=== PATIENT | female | born 1960 | race African-American/Black ===

== ENCOUNTER 2016-10-01 01:06 | Emergency (ER) | payer MEDICARE, OTHER ==
[~2016-10-01] VITALS: Ht 160 cm; Wt 115.0 kg
[~2016-10-01 01:06] MED LIST: 1-ME1LIQ PO; ACET325S8 PO; CALC667C PO; FURO1TAB93 PO; GABA100C4 PO; HYDR10TA23 PO; LABE300T PO; LANTUSP SQ; LIPI80TA16 PO; MACR100C PO; NOVOLOGP2 SQ; PRIL20CA PO; SKIN1CRE2 TOP; SODI650T PO; VITAMIN D PO; ZOFR4TAB3 SL; [UNRECOGNIZED DRUG - CODE] SQ; [UNRECOGNIZED DRUG - OTHER] IR
[2016-10-01 01:18] VITALS: BP 177/83; PULSE 100; RESP 18; TEMP 98.2; O2SAT 96
[2016-10-01 01:27] VITALS: RESP 16; O2SAT 97
[2016-10-01] MEDS ORDERED: SODIUM CHLORIDE 0.9% FLUSH 5 ML FLUSH IVF PRN (01:30)
[2016-10-01] MEDS ORDERED: LANTUS2P (01:44)
[2016-10-01] MEDS ORDERED: HYDR50TA15 PO (01:44)
[2016-10-01] MEDS ORDERED: [UNRECOGNIZED DRUG - CODE] SQ (01:44)
[2016-10-01] MEDS ORDERED: NOVOLOGP2 SQ (01:44)
[2016-10-01] MEDS ORDERED: LABE300T PO (01:44)
[2016-10-01] MEDS ORDERED: LIPI80TA PO (01:44)
[2016-10-01] MEDS ORDERED: TYLE325T PO (01:44)
[2016-10-01] MEDS ORDERED: OMEP20CA2 (01:44)
[2016-10-01] MEDS ORDERED: SODI650T PO (01:44)
[2016-10-01] MEDS ORDERED: GABA100C4 PO (01:44)
[2016-10-01] MEDS ORDERED: FURO1TAB60 PO (01:44)
--- NOTE | 2016-10-01 01:55 | RADRPT ---
EXAM DATE/TIME: 10/01/2016 01:42 [facility] COMPARISON: CHEST SINGLE AP, December 28, 2012, 13:37. INDICATIONS : Weakness post dialysis. MEDICAL HISTORY : Renal failure, chronic. SURGICAL HISTORY : None. ENCOUNTER: Initial ACUITY: 1 day PAIN SCORE: 0/10 LOCATION: Bilateral chest FINDINGS: The cardiac silhouette is enlarged in transverse diameter. The lungs are free of acute parenchymal op acity. No effusions are identified. Osseous structures are intact. CONCLUSION: Cardiomegaly. No acute cardiopulmonary disease. Sean Alcantara MD on October 01, 2016 at 1:53 Board Certified Radiologist. This report was verified electronically.
[2016-10-01 01:56] LABS: AUTOMATED NEUTROPHIL # 4.6 TH/MM3 (1.8-7.7); BASOPHIL % 0.7 % (0.0-2.0); EOSINOPHIL # 0.1 TH/MM3 (0-0.4); EOSINOPHIL % 1.8 % (0.0-4.0); HEMATOCRIT 32.2 % (35.0-46.0); LYMPH % 11.9 % (9.0-44.0); LYMPHOCYTE # 0.7 TH/MM3 (1.0-4.8); MEAN CELL VOLUME 78.2 FL (80.0-100.0); MEAN CORPUSCULAR HEMOGLOBIN 24.8 PG (27.0-34.0); MEAN CORPUSCULAR HGB CONC 31.7 % (32.0-36.0); MONO % 6.8 % (0.0-8.0); NEUT % 78.8 % (16.0-70.0); PLATELET COUNT 248 TH/MM3 (150-450); RED BLOOD COUNT 4.11 MIL/MM3 (4.00-5.30); RED CELL DISTRIBUTION WIDTH 15.7 % (11.6-17.2); WHITE BLOOD COUNT 5.9 TH/MM3 (4.0-11.0)
[2016-10-01 01:57] LABS: APTT (PATIENT) 27.9 SEC (24.3-30.1); PROTHROMBIN TIME - PATIENT 10.9 SEC (9.8-11.6)
[2016-10-01 02:00] LABS: HEMO FLAGS AUTO DIFF
[2016-10-01 02:05] LABS: BICARBONATE 29.4 MEQ/L (21.0-32.0); MAGNESIUM 1.7 MG/DL (1.5-2.5); POTASSIUM 3.7 MEQ/L (3.5-5.1)
[2016-10-01 03:01] LABS: OVALOCYTES 1+ (NORMAL); SCAN/DIFF AUTO DIFF CONFIRMED
--- NOTE | 2016-10-01 03:08 | PD ---
HPI Chief Complaint: Dizziness Time Seen by Provider: 01:21 Travel History International Travel<30 days: No Contact w/Intl Traveler<30days: No Traveled to known affect area: No History of Present Illness HPI Patient is a 56-year-old female presents to emergency department with a chief complaint of dizziness and lightheadedness. Patient states that she went to dialysis today and after finishing dialysis around 3:00 she began to feel some dizziness and weakness. This was generalized complaints she had no focal weakness. She initially tried to bear it at home but then called her physician who told her to come in the emergency department to be seen. Patient denies any headache nausea vomiting abdominal pain chest pain shortness of breath. States she did really her entire dialysis treatment and it took approximately 2 L off of her today. Denies any fevers. PFSH Past Medical History Anemia: Yes Asthma: No Heart Rhythm Problems: No Cancer: No Cardiovascular Problems: Yes (HTN, CHF) High Cholesterol: Yes Chest Pain: Yes (chest pain 2 months ago) Congestive Heart Failure: Yes COPD: No Diabetes: Yes Patient Takes Glucophage: No Dialysis: Yes (MON, WED, FRI) Diminished Hearing: No Endocrine: Yes GERD: Yes Genitourinary: Yes (ESRD) Hepatitis: No Hiatal Hernia: No Hypertension: Yes Immune Disorder: No Kidney Stones: No Medical other: Yes (ULCER X 2 ON LEFT LOWER LEG - ) Musculoskeletal: Yes (BROKEN RIGHT LEG ) Neurologic: No Psychiatric: No Reproductive: No Respiratory: Yes Renal Failure: Yes (ESRD) Sleep Apnea: Yes Ulcer: No Tetanus Vaccination: < 5 Years Influenza Vaccination: Yes Menopausal: Yes : 1 Miscarriage: 1 Past Surgical History Abdominal Surgery: No AICD: No Body Medical Devices: NONE Cardiac Surgery: No Ear Surgery: No Endocrine Surgery: No Eye Surgery: No Genitourinary Surgery: No Gynecologic Surgery: No Joint Replacement: No Oral Surgery: No Pacemaker: No Thoracic Surgery: No Other Surgery: Yes (RIGHT LEG DEBRIDMENT AND SKIN GRAFT, LEFT ARM FISTULA) Social History Alcohol Use: No Tobacco Use: No Substance Use: No Allergies-Medications (Allergen,Severity, Reaction): Coded Allergies: Ampicillin (Unverified Allergy, Severe, DIARRHEA/VOMITTING, 10/01/16) Bactrim (Verified Allergy, Severe, HIVES, 10/01/16) Reported Meds & Prescriptions Reported Meds & Active Scripts Active Reported Sodium Bicarbonate 650 Mg Tab 650 Mg PO BIDPC Omeprazole 20 Mg Cap DAILY Labetalol (Labetalol HCl) 300 Mg Tab 300 Mg PO TID Lantus Inj (Insulin Glargine) 100 Unit/Ml Inj 45 BID Novolog Inj (Insulin Aspart) 1,000 Unit/10 Ml Vial 0 SQ DIRECTED Sliding Scale as directed. Hydralazine (Hydralazine HCl) 50 Mg Tab 50 Mg PO BID Take with a meal Gabapentin 100 Mg Cap 100 Mg PO BID Lasix (Furosemide) 40 Mg Tab 40 Mg PO BID Epogen Inj (Epoetin Caleb) 20,000 Unit/Ml Inj 60,000 Units SQ DIRECTED Lipitor (Atorvastatin Calcium) 80 Mg Tab 80 Mg PO HS Tylenol (Acetaminophen) 325 Mg Tab 650 Mg PO Q6H PRN Review of Systems Except as stated in HPI: all other systems reviewed are Neg Physical Exam Narrative GENERAL: [Well-developed well-nourished no apparent distress SKIN: Warm and dry. HEAD: Atraumatic. Normocephalic. EYES: Pupils equal and round. No scleral icterus. No injection or drainage. ENT: No nasal bleeding or discharge. Mucous membranes pink and moist. NECK: Trachea midline. No JVD. CARDIOVASCULAR: Regular rate and rhythm. No murmur appreciated. 2+ bilateral equal pulses in all 4 extremities. Left forearm AV fistula with palpable thrill. RESPIRATORY: No accessory muscle use. Clear to auscultation. Breath sounds equal bilaterally. GASTROINTESTINAL: Abdomen soft, non-tender, nondistended. Hepatic and splenic margins not palpable. MUSCULOSKELETAL: No obvious deformities. No clubbing. No cyanosis. No edema. Previous BKA on the right. NEUROLOGICAL: Awake and alert. cranial nerves II through XII are grossly intact and nonfocal, 5 out of 5 strength in all 4 tremors. Normal speech, cerebellar testing negative. PSYCHIATRIC: Appropriate mood and affect; insight and judgment normal. Data Data Last Documented VS Vital Signs Date Time Temp Pulse Resp B/P Pulse Ox O2 Delivery O2 Flow Rate FiO2 10/01/16 03:34 98.4 68 18 141/56 97 10/01/16 01:27 Room Air Orders Electrocardiogram (10/01/16 01:23) Basic Metabolic Panel (Bmp) (10/01/16 01:23) Ckmb (Isoenzyme) Profile (10/01/16 01:23) Complete Blood Count With Diff (10/01/16:23) Magnesium (Mg) (10/01/16:23) Prothrombin Time / Inr (Pt) (10/01/16:) Act Partial Throm Time (Ptt) (10/01/16:) Troponin I (10/01/16:) Chest, Single Ap (10/01/16:23) Ecg Monitoring (10/01/16:) Bilateral Bp Monitoring (10/01/16) Iv Access Insert/Monitor (10/01/16:) Oximetry (10/01/16:) Oxygen Administration (10/01/16:) Sodium Chloride 0.9% Flush (Ns Flush) (10/01/16:30) Labs Laboratory Tests Test 10/01/16: White Blood Count 5.9 TH/MM3 Red Blood Count 4.11 MIL/MM3 Hemoglobin 10.2 GM/DL Hematocrit 32.2 % Mean Corpuscular Volume 78.2 FL Mean Corpuscular Hemoglobin 24.8 PG Mean Corpuscular Hemoglobin 31.7 % Concent Red Cell Distribution Width 15.7 % Platelet Count 248 TH/MM3 Mean Platelet Volume 7.9 FL Neutrophils (%) (Auto) 78.8 % Lymphocytes (%) (Auto) 11.9 % Monocytes (%) (Auto) 6.8 % Eosinophils (%) (Auto) 1.8 % Basophils (%) (Auto) 0.7 % Neutrophils # (Auto) 4.6 TH/MM3 Lymphocytes # (Auto) 0.7 TH/MM3 Monocytes # (Auto) 0.4 TH/MM3 Eosinophils # (Auto) 0.1 TH/MM3 Basophils # (Auto) 0.0 TH/MM3 CBC Comment AUTO DIFF Differential Comment AUTO DIFF CONFIRMED Ovalocytes 1+ Prothrombin Time 10.9 SEC Prothromb Time International 1.0 RATIO Ratio Activated Partial 27.9 SEC Thromboplast Time Sodium Level 139 MEQ/L Potassium Level 3.7 MEQ/L Chloride Level 103 MEQ/L Carbon Dioxide Level 29.4 MEQ/L Anion Gap 7 MEQ/L Blood Urea Nitrogen 20 MG/DL Creatinine 3.24 MG/DL Estimat Glomerular Filtration 18 ML/MIN Rate Random Glucose 272 MG/DL Calcium Level 8.6 MG/DL Magnesium Level 1.7 MG/DL Total Creatine Kinase 91 U/L Troponin I 0.02 NG/ML MDM Medical Decision Making Medical Screen Exam Complete: Yes Emergency Medical Condition: Yes Differential Diagnosis Electro-lead abnormality, dehydration, CVA unlikely, vertigo. Narrative Course Patient roomed in the emergency department, EKG troponin electrolytes all within normal limits. She was given normal saline and felt better after this treatment. Discussed with her that her initial workup is negative and she stable for discharge at this time. She is agreeable to go home. Diagnosis Primary Impression: Dizziness Additional Instructions: Call your synthetic resin operator tomorrow. Disposition: 01 DISCHARGE HOME Condition: Stable Rock Bravo MD Oct 01, 2016 03:08
[2016-10-01 03:34] VITALS: BP 141/56; TEMP 98.4
--- NOTE | 2016-10-01 14:21 | EKG ---
Date Performed: 10/01/2016 Time Performed: 02:16:51 PTAGE: 56 years EKG: Sinus rhythm POSSIBLE LEFT ATRIAL ENLARGEMENT SEPTAL MYOCARDIAL INFARCTION ABNORMAL ECG Compared to prior tracing no significant change PREVIOUS TRACING : 01/08/2013 13.23 DOCTOR: Mario Ambrocio Interpretating Date/Time 10/01/2016 14:17:12
== END 2016-10-01 03:35 | disposition home or self-care (01) ==
LOC: NEPC 01:06
DX: R42 Dizziness and giddiness (principal); Z99.2 Dependence on renal dialysis; I12.0 Hypertensive chronic kidney disease with stage 5 chronic kidney disease or end stage renal disease; E11.9 Type 2 diabetes mellitus without complications; K21.9 Gastro-esophageal reflux disease without esophagitis; N18.6 End stage renal disease; G47.30 Sleep apnea, unspecified; Z79.4 Long term (current) use of insulin; R94.31 Abnormal electrocardiogram [ECG] [EKG]
CPT/HCPCS: 71010; 80048; 82550; 83735; 84484; 85025; 85610; 85730; 93005

== ENCOUNTER 2016-10-03 14:54 | Inpatient (IN) | payer MEDICARE, OTHER ==
[~2016-10-03] VITALS: Ht 160 cm; Wt 100.0 kg
[~2016-10-03 14:54] MED LIST changes: -1-ME1LIQ PO; -ACET325S8 PO; -CALC667C PO; +FURO1TAB60 PO; -FURO1TAB93 PO; -HYDR10TA23 PO; +HYDR50TA15 PO; +LANTUS2P; -LANTUSP SQ; +LIPI80TA PO; -LIPI80TA16 PO; -MACR100C PO; +OMEP20CA2; -PRIL20CA PO; -SKIN1CRE2 TOP; +TYLE325T PO; -VITAMIN D PO; -ZOFR4TAB3 SL; +[UNRECOGNIZED DRUG - CODE] SQ; -[UNRECOGNIZED DRUG - CODE] SQ; -[UNRECOGNIZED DRUG - OTHER] IR
[2016-10-03 15:10] VITALS: BP 171/70; PULSE 84; RESP 18; TEMP 97.8; O2SAT 100
--- NOTE | 2016-10-03 15:37 | PD ---
HPI Chief Complaint: Dizziness Time Seen by Provider: 15:03 Travel History International Travel<30 days: No Contact w/Intl Traveler<30days: No Traveled to known affect area: No History of Present Illness HPI This is a 56-year-old female who presents to the emergency department with dizziness. She reports that ever since she had dialysis on Monday she's been feeling dizzy, like the room is spinning and like she is seeing white spots and feels like she is going to pass out. Symptoms have been constant throughout the weekend and she is having difficulty getting around the house she feels unsteady on her feet. She denies a headache, nausea or vomiting. She denies any chest pain or trouble breathing. She has never had symptoms like this before. She does still make urine. PFSH Past Medical History Anemia: Yes Asthma: No Heart Rhythm Problems: No Cancer: No Cardiovascular Problems: Yes (HTN, CHF) High Cholesterol: Yes Chest Pain: Yes (chest pain 2 months ago) Congestive Heart Failure: Yes COPD: No Diabetes: Yes Patient Takes Glucophage: No Dialysis: Yes (MON, MON, MON) Diminished Hearing: No Endocrine: Yes GERD: Yes Genitourinary: Yes (ESRD) Hepatitis: No Hiatal Hernia: No Hypertension: Yes Immune Disorder: No Kidney Stones: No Medical other: Yes (ULCER X 2 ON LEFT LOWER LEG - ) Musculoskeletal: Yes (BROKEN RIGHT LEG ) Neurologic: No Psychiatric: No Reproductive: No Respiratory: Yes Renal Failure: Yes (ESRD) Sleep Apnea: Yes Ulcer: No Menopausal: Yes : 1 Miscarriage: 1 Past Surgical History Abdominal Surgery: No AICD: No Body Medical Devices: NONE Cardiac Surgery: No Ear Surgery: No Endocrine Surgery: No Eye Surgery: No Genitourinary Surgery: No Gynecologic Surgery: No Joint Replacement: No Neurologic Surgery: No Oral Surgery: No Pacemaker: No Thoracic Surgery: No Other Surgery: Yes (RIGHT LEG DEBRIDMENT AND SKIN GRAFT, LEFT ARM FISTULA) Social History Alcohol Use: No Tobacco Use: No Substance Use: No Allergies-Medications (Allergen,Severity, Reaction): Coded Allergies: Ampicillin (Unverified Allergy, Severe, DIARRHEA/VOMITTING, 10/01/16) Bactrim (Verified Allergy, Severe, HIVES, 10/01/16) Reported Meds & Prescriptions Reported Meds & Active Scripts Active Reported Proventil Hfa 6.7 GM Inh (Albuterol Sulfate) 90 Mcg/Act Aer 1 Puff INH Q4H PRN Sodium Bicarbonate 650 Mg Tab 650 Mg PO BIDPC Omeprazole 20 Mg Cap DAILY Labetalol (Labetalol HCl) 300 Mg Tab 300 Mg PO TID Lantus Inj (Insulin Glargine) 100 Unit/Ml Inj 45 BID Novolog Inj (Insulin Aspart) 1,000 Unit/10 Ml Vial 0 SQ DIRECTED Sliding Scale as directed. Hydralazine (Hydralazine HCl) 50 Mg Tab 50 Mg PO BID Take with a meal Gabapentin 100 Mg Cap 100 Mg PO BID Lasix (Furosemide) 40 Mg Tab 40 Mg PO BID Epogen Inj (Epoetin Caleb) 20,000 Unit/Ml Inj 60,000 Units SQ DIRECTED Lipitor (Atorvastatin Calcium) 80 Mg Tab 80 Mg PO HS Tylenol (Acetaminophen) 325 Mg Tab 650 Mg PO Q6H PRN Review of Systems Except as stated in HPI: all other systems reviewed are Neg Physical Exam Narrative GENERAL:Well appearing, no acute distress SKIN: Dry with skin tenting. HEAD: Atraumatic. Normocephalic. EYES: Pupils equal and round. No injection or drainage. ENT: Moist mucous membranes NECK: Trachea midline. CARDIOVASCULAR: Regular rate and rhythm. No murmur appreciated. RESPIRATORY: Clear to auscultation. Breath sounds equal bilaterally. GASTROINTESTINAL: Abdomen soft, non-tender, nondistended. MUSCULOSKELETAL: No obvious deformities. NEUROLOGICAL: Awake and alert. No obvious cranial nerve deficits. Some expressive aphasia, uncertain if acute or chronic. No upper or lower extremity drift. Bilateral upper extremity ataxia. PSYCHIATRIC: Appropriate mood and affect; insight and judgment normal. Data Data Last Documented VS Vital Signs Date Time Temp Pulse Resp B/P Pulse Ox O2 Delivery O2 Flow Rate FiO2 10/03/16 18:00 77 18 141/99 100 Room Air 10/03/16 15:10 97.8 Orders Complete Blood Count With Diff (10/03/16 15:25) Basic Metabolic Panel (Bmp) (10/03/16 15:25) Troponin I (10/03/16 15:25) Mri Brain W/O Contrast (10/03/16 ) Electrocardiogram (10/03/16 ) ^ Insert Iv (10/03/16 15:25) Urinalysis - C+S If Indicated (10/03/16 15:26) Cath For Specimen (10/03/16 15:26) Admit Order (Ed Use Only) (10/03/16 19:04) Labs Laboratory Tests Test 10/03/16 10/03/16 10/03/16 15:36 15:40 17:00 Urine Color YELLOW Urine Turbidity HAZY Urine pH 5.5 Urine Specific [place] 1.016 Urine Protein 100 mg/dL Urine Glucose (UA) NEG mg/dL Urine Ketones NEG mg/dL Urine Occult Blood NEG Urine Nitrite NEG Urine Bilirubin NEG Urine Urobilinogen LESS THAN 2.0 MG/DL Urine Leukocyte Esterase NEG Urine RBC LESS THAN 1 /hpf Urine WBC 3 /hpf Urine Squamous Epithelial <1 /hpf Cells Urine Amorphous Sediment RARE Urine Bacteria OCC /hpf Urine Hyaline Casts 3 /lpf Microscopic Urinalysis Comment CATH-CULT NOT IND White Blood Count 6.6 TH/MM3 Red Blood Count 3.90 MIL/MM3 Hemoglobin 9.8 GM/DL Hematocrit 30.8 % Mean Corpuscular Volume 79.0 FL Mean Corpuscular Hemoglobin 25.3 PG Mean Corpuscular Hemoglobin 32.0 % Concent Red Cell Distribution Width 15.7 % Platelet Count 418 TH/MM3 Mean Platelet Volume 9.4 FL Neutrophils (%) (Auto) 65.3 % Lymphocytes (%) (Auto) 22.8 % Monocytes (%) (Auto) 6.9 % Eosinophils (%) (Auto) 4.1 % Basophils (%) (Auto) 0.9 % Neutrophils # (Auto) 4.3 TH/MM3 Lymphocytes # (Auto) 1.5 TH/MM3 Monocytes # (Auto) 0.5 TH/MM3 Eosinophils # (Auto) 0.3 TH/MM3 Basophils # (Auto) 0.1 TH/MM3 CBC Comment DIFF FINAL Differential Comment Sodium Level 139 MEQ/L Potassium Level 3.8 MEQ/L Chloride Level 102 MEQ/L Carbon Dioxide Level 25.6 MEQ/L Anion Gap 11 MEQ/L Blood Urea Nitrogen 42 MG/DL Creatinine 5.77 MG/DL Estimat Glomerular Filtration 9 ML/MIN Rate Random Glucose 115 MG/DL Calcium Level 8.8 MG/DL Troponin I 0.13 NG/ML 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 Patient was placed on a monitor and an IV was established. She was found to be somewhat ataxic with some dysarthria. MRI was obtained which demonstrates significant vertebral basilar disease with lacunar infarcts in the brainstem, which I suspect are related to her symptoms. I spoke to Dr. Driscoll who recommended the patient received 325 of aspirin and neurology will consult on her tomorrow. Physician Communication Physician Communication Discussed with Dr. Villegas and Dr. Driscoll Diagnosis Primary Impression: Stroke Qualified Code: I63.9 - Cerebrovascular accident (CVA), unspecified mechanism Admitting Information Admitting Physician Requests: Admit Harriet Basurto MD Oct 03, 2016 15:37
[2016-10-03 15:58] LABS: BACTERIA, URINE OCC /hpf; BLOOD, URINE NEG (NEG); GLUCOSE,URINE NEG (NEG); HYALINE CAST, URINE 3 /lpf (RARE); KETONE, URINE NEG (NEG); NITRITE,URINE NEG (NEG); PH, URINE 5.5 (5.0-8.5); SQUAMOUS EPITHELIAL CELL URINE <1 /hpf (0-5); URINE COLOR YELLOW (YELLW/STRAW)
[2016-10-03 15:59] LABS: COMMENT (UR) CATH-CULT NOT IND; CULTURE IF INDICATED CATH CULTURE NOT IND
[2016-10-03 16:06] LABS: AUTOMATED NEUTROPHIL # 4.3 TH/MM3 (1.8-7.7); BASOPHIL # 0.1 TH/MM3 (0-0.2); BASOPHIL % 0.9 % (0.0-2.0); EOSINOPHIL # 0.3 TH/MM3 (0-0.4); EOSINOPHIL % 4.1 % (0.0-4.0); HEMATOCRIT 30.8 % (35.0-46.0); HEMO FLAGS DIFF FINAL; LYMPH % 22.8 % (9.0-44.0); LYMPHOCYTE # 1.5 TH/MM3 (1.0-4.8); MEAN CORPUSCULAR HEMOGLOBIN 25.3 PG (27.0-34.0); MONO % 6.9 % (0.0-8.0); NEUT % 65.3 % (16.0-70.0); PLATELET COUNT 418 TH/MM3 (150-450); RED CELL DISTRIBUTION WIDTH 15.7 % (11.6-17.2); WHITE BLOOD COUNT 6.6 TH/MM3 (4.0-11.0)
[2016-10-03 17:56] LABS: BICARBONATE 25.6 MEQ/L (21.0-32.0); POTASSIUM 3.8 MEQ/L (3.5-5.1)
[2016-10-03 18:00] VITALS: BP 141/99; PULSE 77; RESP 18; O2SAT 100
--- NOTE | 2016-10-03 18:07 | RADRPT ---
EXAM DATE/TIME: 10/03/2016 17:32 [facility] COMPARISON: No previous studies available for comparison. INDICATIONS : Dizziness. MEDICAL HISTORY : Renal insufficiency. Diabetes mellitus type 2. Hypertension. SURGICAL HISTORY : Left BKA ENCOUNTER: Initial ACUITY: 3 day PAIN SCORE: 1/10 LOCATION: Bilateral cranial TECHNIQUE: Multiplanar, multisequence MRI of the brain was performed without contrast. FINDINGS: There is very minimal restricted diffusion in the brainstem at the level of the cerebra l peduncles. There is no restricted diffusion in the supratentorial brain. Marked periventricular white matter changes are evident extending into the brainstem. There are lacun ar infarcts in the brainstem. The fourth ventricle is midline. Supratentorial ventricles are normal in size. There is no extraaxial fluid collections appreciated. There is no parenchymal hemorrhage evident. In spite of lacunar infarcts in the brainstem the basilar artery appears patent. CONCLUSION: 1. 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 2. Mild periventricular white matter changes in the supratentorial brain. 3. There is no parenchymal hemorrhage. Jaime Bazan MD FACR on October 03, 2016 at 17:57 Board Certified Radiologist. This report was verified electronically.
[2016-10-03] MEDS ORDERED: ALBU6.7H INH (19:10)
[2016-10-03 19:11] VITALS: BP 147/69; PULSE 71; RESP 18; O2SAT 99
[2016-10-03] MEDS ORDERED: ASPIRIN 325 MG TAB PO ONE (19:15)
[2016-10-03 20:23] VITALS: BP 145/70; PULSE 75; RESP 19; O2SAT 99
--- NOTE | 2016-10-03 20:31 | HHI.HP ---
[facility] Service Family Medicine Primary Care Physician James Hylton Admission Diagnosis stroke Diagnoses: International Travel<30 Days: No Contact w/Intl Traveler<30days: No Known Affected Area: No History of Present Illness Mrs. Vasquez is a 56 y/o F with a PMHx of type 2 DM, anemia, and s/p RLE BKA presenting to the ED with the chief complaint of dizziness. She states that last 09/30/16, during her hemodialysis appointment she began to feel very dizzy. She states that her clinical quality analyst wanted to take 3L of fluid off during her dialysis, however they discontinued after approximately 2L due to severe cramping and dizziness. Since that time she has been lethargic, but not obtunded. She has had intermittent episodes of dizziness with room spinning causing imbalance. She has also been experiencing visual disturbances throughout the weekend with the inability to focus on objects such as faces or the television. Of note she does have a history of cataracts. While the patient has had a stuttering problem since childhood, she agrees that her current speech is delayed and has been having some trouble finding the correct words to say over the weekend. She has been experiencing intermittent headaches at 6/10 on the pain scale located on the back of her head. She denies any odd tastes or smells, loss of consciousness, or seizure like activity. She has no other complaints and denies any fevers, SOB, chest pain, NVD, or calf tenderness currently. Of note patient reports that she did not receive hemodialysis today. When asked about her urine output, the patient states that she is able to produce urine. However she will go days without voiding and is incontinent. ( Jordan Schwab MD R1) Review of Systems Constitutional: DENIES: Fever Endocrine: DENIES: Polyphagia Eyes: COMPLAINS OF: Blurred vision, DENIES: Eye pain Ears, nose, mouth, throat: DENIES: Hearing loss Respiratory: DENIES: Cough, Shortness of breath Cardiovascular: DENIES: Chest pain, Palpitations Gastrointestinal: DENIES: Abdominal pain, Diarrhea, Nausea, Vomiting Genitourinary: DENIES: Hematuria, Dysuria Musculoskeletal: DENIES: Joint pain Integumentary: DENIES: Rash Hematologic/lymphatic: DENIES: Lymphadenopathy Immunologic/allergic: DENIES: Urticaria Neurologic: COMPLAINS OF: Headache Psychiatric: DENIES: Mood changes (Jordan Schwab MD R1) Past Family Social History Past Medical History Cataracts Type 2 DM Kidney failure - on hemodialysis MWF Anemia - Heme/Onc GERD HTN Past Surgical History R BKA (Jordan Schwab MD R1) Allergies: Coded Allergies: Ampicillin (Unverified Allergy, Severe, DIARRHEA/VOMITTING, 10/01/16) Bactrim (Verified Allergy, Severe, HIVES, 10/01/16) Family History Mother - Kidney failure, T2DM, TIA/CVA, CHF Father - Kidney failure, T2DM, TIA/CVA, CHF Social History Lives at home by herself in [facility] without assistance. Used to work at [employer] in 2006, but quit due to her leg problems. She has [facility] Medicare. Alcohol - none reported Smoke - quit completely 2 years ago, smoked maybe 2-4 times per year before Illicit drug - none reported (Jordan Schwab MD R1) Physical Exam Vital Signs Vital Signs Date Time Temp Pulse Resp B/P Pulse Ox O2 Delivery O2 Flow Rate FiO2 10/03/16 20:23 75 19 145/70 99 Room Air 10/03/16 19:11 71 18 147/69 99 Room Air 10/03/16 18:00 77 18 141/99 100 Room Air 10/03/16 15:10 81 18 100 Room Air 10/03/16 15:10 97.8 84 18 171/70 100 Room Air Physical Exam GENERAL: 56 y/o F lying in bed in no acute distress. SKIN: Cool and dry without rash or ecchymosis. HEENT: Atraumatic, normocephalic with EOMI. Oropharynx clear with no erythema. Nose without rhinorrhea. MMM. CARDIOVASCULAR: RRR with no MGR. RESPIRATORY: CTAB with no CRW. No increased work of breathing. GASTROINTESTINAL: Abdomen soft, non-tender, nondistended with +BS. MUSCULOSKELETAL: Extremities without cyanosis or edema. RLE with BKA rapped in MARY bandage for use with prosthetic. LUE with fistula for hemodialysis. NEUROLOGICAL: AAOx3. Slowed speech with mild aphasia. Upper and lower extremities neurovascularly intact with appropriate strength and sensation. Reflexes 2+. CN 2-12 intact. Negative pronator drift test. Able to repeat "no, ifs, ands, or buts." Mild photophobia with reactive pupils. Patient is currently able to focus vision during exam without complaints. Laboratory Laboratory Tests Test 10/03/16 10/03/16 10/03/16 15:36 15:40 17:00 Urine Color YELLOW Urine Turbidity HAZY Urine pH 5.5 Urine Specific [place] 1.016 Urine Protein 100 Urine Glucose (UA) NEG Urine Ketones NEG Urine Occult Blood NEG Urine Nitrite NEG Urine Bilirubin NEG Urine Urobilinogen LESS THAN 2.0 Urine Leukocyte Esterase NEG Urine RBC LESS THAN 1 Urine WBC 3 Urine Squamous Epithelial <1 Cells Urine Amorphous Sediment RARE Urine Bacteria OCC Urine Hyaline Casts 3 Microscopic Urinalysis Comment CATH-CULT NOT IND White Blood Count 6.6 Red Blood Count 3.90 Hemoglobin 9.8 Hematocrit 30.8 Mean Corpuscular Volume 79.0 Mean Corpuscular Hemoglobin 25.3 Mean Corpuscular Hemoglobin 32.0 Concent Red Cell Distribution Width 15.7 Platelet Count 418 Mean Platelet Volume 9.4 Neutrophils (%) (Auto) 65.3 Lymphocytes (%) (Auto) 22.8 Monocytes (%) (Auto) 6.9 Eosinophils (%) (Auto) 4.1 Basophils (%) (Auto) 0.9 Neutrophils # (Auto) 4.3 Lymphocytes # (Auto) 1.5 Monocytes # (Auto) 0.5 Eosinophils # (Auto) 0.3 Basophils # (Auto) 0.1 CBC Comment DIFF FINAL Differential Comment Sodium Level 139 Potassium Level 3.8 Chloride Level 102 Carbon Dioxide Level 25.6 Anion Gap 11 Blood Urea Nitrogen 42 Creatinine 5.77 Estimat Glomerular Filtration 9 Rate Random Glucose 115 Calcium Level 8.8 Troponin I 0.13 (Jordan Schwab MD R1) Result Diagram: 10/03/16 1540 10/03/16 1700 Assessment and Plan Assessment and Plan Mrs. Vasquez is a 56 y/o F with a PMHx of type 2 DM, anemia, and s/p RLE BKA presenting to the ED with the chief complaint of dizziness likely due to a CVA. Code Status FULL Discussed Condition With Dr. Basurto, ER physician Dr. Esteban Villegas (Jordan Schwab MD R1) Problem List: (1) Lacunar infarction Status: Acute Plan: Patient presenting with dizziness, imbalance and slowed speech with mild aphasia since Monday. MRI showing acute and chronic lacunar infarcts in the brainstem. Brain MRI: Significant vertebral disease with lacunar infarcts in the brainstem both acute and chronic. Mild periventricular white matter changes in the supratentorial brain. There is no parenchymal hemorrhage. CBC: WBC 6.6, H/H 9.8/30.8, platelets 418 BMP: Creatinine 5.77, BUN 42, glucose 114, otherwise WNL Lipid panel: Pending A1c: Pending CK 501 Troponin: 0.13, pending 2 EKG: Sinus rhythm with no significant change compared to prior EKG, medical team EKG read, pending 2 UA: Hazy, 100 of protein, occasional bacteria with culture not indicated Echo: Pending Carotid ultrasound: Pending Neuro checks every 4 hours [address] precautions in place, bedrest Nothing by mouth until patient passed a swallow evaluation Aspirin 325 mg daily Vasotec 1.25 mg every 4 hours when necessary for SBP greater than 220 Consult rehabilitation medicine Case management consult PT/OT consult Consult neurology (2) Hemodialysis patient Status: Acute Plan: Patient currently on MWF hemodialysis due to kidney failure. Patient did not receive hemodialysis on 10/03/69. CBC: WBC 6.6, H/H 9.8/30.8, platelets 418 BMP: Creatinine 5.77, BUN 42, glucose 115, otherwise WNL CK 501 Troponin: 0.13, pending 2 EKG: Sinus rhythm with no significant change compared to prior EKG, medical team EKG read, pending 2 UA: Hazy, 100 of protein, occasional bacteria with culture not indicated Epogen held, scheduled for Monday per patient report Sodium bicarbonate 650 mg twice a day, held Consult Nephrology (3) Diabetes Status: Acute Plan: Patient with type 2 diabetes currently on Lantus 45 units twice a day and SSI. BMP: Creatinine 5.77, BUN 42, glucose 114, otherwise WNL A1c: Pending Lantus 45 units twice a day, hold Gabapentin 100 mg by mouth twice a day, hold due to kidney function Levemir 11 units twice a day Low-dose sliding scale insulin per protocol Placed on diabetic diet once patient has passed swallow evaluation (4) GERD (gastroesophageal reflux disease) Status: Acute Plan: Patient with reported history of GERD Hold home omeprazole 20mg QD Protonix 20mg daily (5) HTN (hypertension) Status: Acute Plan: Patient with reported chronic hypertension Continue Lasix 40mg BID Continue hydralazine 50 mg twice a day Continue labetalol 300 mg 3 times a day Continue amlodipine 10 mg daily Vasotec 1.25 mg every 4 hours when necessary for SBP greater than 220 (6) No contraindication to deep vein thrombosis (DVT) prophylaxis Status: Acute Plan: Heparin 5000 units every 8 hours SCD/TEDs (7) Nutrition, metabolism, and development symptoms Status: Acute Plan: Fluids: Deferred at this time due to kidney function Electrolyte: Continue to monitor Diet: Nothing by mouth until patient is able to pass swallow evaluation (Jordan Schwab MD R1) Physician Certification 2 Midnight Certification Type: Admission for Inpatient Services Order for Inpatient Services The services are ordered in accordance with Medicare regulations or non- Medicare payer requirements, as applicable. In the case of services not specified as inpatient-only, they are appropriately provided as inpatient services in accordance with the 2-midnight benchmark. Estimated LOS (days): 3 3 days is the estimated time the patient will need to remain in the hospital, assuming treatment plan goals are met and no additional complications. Post-Hospital Plan: Home (Jordan Schwab MD R1) 2 Midnight Certification Type: Admission for Inpatient Services Post-Hospital Plan: Home (Cb Nelson MD) Jordan Schwab MD R1 Oct 03, 2016 20:31 Cb Nelson MD Oct 04, 2016 13:09
[2016-10-03] MEDS ORDERED: ALBUTEROL SULFATE 90 MCG/ACT HFA 8 GM INHALER INH PRN (21:00)
[2016-10-03] MEDS ORDERED: GLUCAGON 1 MG/ML VIAL IM/SQ PRN (21:15)
[2016-10-03] MEDS ORDERED: SODIUM CHLORIDE 0.9% FLUSH 5 ML FLUSH IVF PRN (21:15)
[2016-10-03] MEDS: GABAPENTIN 100 MG CAP PO SCH (21:18)
[2016-10-03] MEDS: hydrALAZINE HCL 50 MG TAB PO SCH (21:28)
[2016-10-03] MEDS: ATORVASTATIN 80 MG TAB PO SCH (21:29)
[2016-10-03 21:31] VITALS: BP 156/68; PULSE 68; RESP 18; O2SAT 99
[2016-10-03] MEDS: SODIUM CHLORIDE 0.9% FLUSH 5 ML FLUSH IVF SCH (21:41)
[2016-10-03 22:00] VITALS: O2SAT 99
[2016-10-03] MEDS ORDERED: ENALAPRILAT 1.25 MG/ML VIAL IV PRN (22:00)
[2016-10-03] MEDS: HEPARIN SODIUM - SQ 10,000 UNITS/ML VIAL SQ SCH (22:14)
[2016-10-04 00:04] VITALS: BP 149/79; PULSE 67; RESP 18; TEMP 98.7; O2SAT 99
[2016-10-04] MEDS: DEXTROSE 50% IN WATER 50 ML VIAL(D50) IV PUSH PRN ×3 (01:09→06:05)
[2016-10-04 02:16] LABS: CKMB 3.3 NG/ML (0.5-3.6)
[2016-10-04 04:43] LABS: AUTOMATED NEUTROPHIL # 3.1 TH/MM3 (1.8-7.7); BASOPHIL # 0.1 TH/MM3 (0-0.2); EOSINOPHIL # 0.3 TH/MM3 (0-0.4); EOSINOPHIL % 4.6 % (0.0-4.0); HEMATOCRIT 29.7 % (35.0-46.0); LYMPH % 31.6 % (9.0-44.0); LYMPHOCYTE # 1.8 TH/MM3 (1.0-4.8); MEAN CORPUSCULAR HEMOGLOBIN 24.7 PG (27.0-34.0); MEAN CORPUSCULAR HGB CONC 31.3 % (32.0-36.0); MONO % 7.3 % (0.0-8.0); NEUT % 55.5 % (16.0-70.0); PLATELET COUNT 248 TH/MM3 (150-450); RED BLOOD COUNT 3.76 MIL/MM3 (4.00-5.30); RED CELL DISTRIBUTION WIDTH 15.6 % (11.6-17.2); WHITE BLOOD COUNT 5.6 TH/MM3 (4.0-11.0)
[2016-10-04 05:06] LABS: ALT (GPT) 15 U/L (10-53); ANION GAP 9 MEQ/L (5-15); AST (GOT) 21 U/L (15-37); BICARBONATE 26.1 MEQ/L (21.0-32.0); BLOOD UREA NITROGEN 45 MG/DL (7-18); CHLORIDE 107 MEQ/L (98-107); GLOMERULAR FILTRATION RATE 9 ML/MIN (>89); POTASSIUM 3.8 MEQ/L (3.5-5.1); SODIUM (NA) 142 MEQ/L (136-145)
[2016-10-04 05:08] LABS: ALKALINE PHOSPHATASE 131 U/L (45-117); HDL CHOLESTEROL 41.4 MG/DL (40.0-60.0); LDL CHOLESTEROL 58 MG/DL (0-99); TOTAL BILIRUBIN ADULT 0.4 MG/DL (0.2-1.0)
[2016-10-04 05:11] LABS: HEMO FLAGS AUTO DIFF
[2016-10-04 05:25] VITALS: BP 135/77; PULSE 84; RESP 18; TEMP 98; O2SAT 97
[2016-10-04] MEDS: HEPARIN SODIUM - SQ 10,000 UNITS/ML VIAL SQ SCH ×3 (06:00→21:23)
[2016-10-04] MEDS: INSULIN ASPART SUPPLEMENTAL SCALE SQ SCH ×4 (07:00→21:00)
[2016-10-04 07:20] LABS: PLATELET ESTIMATE SMEAR NORMAL (NORMAL); PLATELET MORPHOLOGY NORMAL (NORMAL); SCAN/DIFF AUTO DIFF CONFIRMED
[2016-10-04 07:30] LABS: CKMB 3.1 NG/ML (0.5-3.6)
[2016-10-04 08:18] VITALS: BP 169/78; PULSE 65; RESP 18; TEMP 96.1; O2SAT 100
[2016-10-04] MEDS: SODIUM CHLORIDE 0.9% FLUSH 5 ML FLUSH IVF SCH ×2 (08:59→21:00)
[2016-10-04] MEDS: SODIUM BICARBONATE 650 MG TAB PO SCH ×2 (09:00→14:50)
[2016-10-04] MEDS: FUROSEMIDE 40 MG TAB PO SCH ×2 (09:00→14:50)
[2016-10-04] MEDS: PANTOPRAZOLE SOD 20 MG DELAYED RELEASE TAB PO SCH (09:00)
[2016-10-04] MEDS: ASPIRIN 325 MG TAB PO SCH (09:00)
[2016-10-04] MEDS: GABAPENTIN 100 MG CAP PO SCH ×2 (09:00→21:23)
[2016-10-04] MEDS ORDERED: INSULIN DETEMIR 100 UNITS/ML VIAL SQ SCH ×2 (09:00→21:00)
[2016-10-04] MEDS: hydrALAZINE HCL 50 MG TAB PO SCH (09:00)
[2016-10-04] MEDS: LABETALOL HCL 300 MG TAB PO SCH ×2 (09:00→14:21)
[2016-10-04 09:45] VITALS: O2SAT 99
[2016-10-04 10:17] VITALS: PULSE 70
--- NOTE | 2016-10-04 10:49 | EKG ---
Date Performed: 10/03/2016 Time Performed: 15:47:41 PTAGE: 56 years EKG: Sinus rhythm NONSPECIFIC T-WAVE ABNORMALITY BORDERLINE ECG Compared to prior tracing no significant change PREVIOUS TRACING : 10/01/2016 02.16 DOCTOR: Ej Harrison Interpretating Date/Time 10/04/2016 10:45:19
[2016-10-04] MEDS ORDERED: SODIUM CHLOR 0.9% 1000 ML INJ 1,000 ML IV PRN ×3 (11:23)
[2016-10-04] MEDS ORDERED: MANNITOL 12.5 GM/50 ML VIAL IV PRN (11:30)
[2016-10-04] MEDS ORDERED: ALBUMIN HUMAN 25% 25 GM/100 ML BAGP IV PRN (11:30)
[2016-10-04] MEDS ORDERED: EPOETIN ALFA 10,000 UNITS/ML VIAL IV PRN (11:30)
[2016-10-04] MEDS ORDERED: diphenhydrAMINE HCL 25 MG CAP PO PRN (11:30)
[2016-10-04] MEDS ORDERED: GELATIN 12 MM/7 MM FOAM TOP PRN (11:30)
[2016-10-04] MEDS ORDERED: ACETAMINOPHEN 325 MG TAB PO PRN (11:30)
[2016-10-04] MEDS ORDERED: NITROGLYCERIN 0.4 MG SL 25 TABS/BTL SL PRN (11:30)
[2016-10-04] MEDS ORDERED: HEPARIN SODIUM - IV 10,000 UNITS/10 ML VIAL IVF PRN (11:30)
[2016-10-04] MEDS ORDERED: ONDANSETRON HCL 4 MG/2 ML VIAL IV PRN (11:30)
[2016-10-04] MEDS ORDERED: SODIUM CHLORIDE 0.9% FLUSH 5 ML FLUSH IVF PRN (11:30)
[2016-10-04] MEDS ORDERED: cloNIDine HCL 0.1 MG TAB PO PRN (11:30)
--- NOTE | 2016-10-04 11:36 | PD.CONS ---
HPI Service Nephrology Consult Requested By Dr. Schwab Reason for Consult ESRD management Primary Care Physician James Hylton History of Present Illness Patient is a 56-year-old Afro-[place] female with history of diabetes, hypertension, ESRD who had her hemodialysis on Monday and she got sick with flulike cramps initially she was set up for 2.4 L of ultrafiltration and she left that the 1.7 L of ultrafiltration, she complained of dizziness afterwards and developed speech issues over the weekend, she stated she felt weak and missed her dialysis on Monday, today she felt her speech is getting slurred and she came to the emergency, MRI of the brain was done which showed acute and chronic lacunar infarcts extending to brain stem. Review of Systems Constitutional: COMPLAINS OF: Fatigue Musculoskeletal: COMPLAINS OF: Joint pain Neurologic: COMPLAINS OF: Abnormal gait, Speech Problems Past Family Social History Allergies: Coded Allergies: Ampicillin (Unverified Allergy, Severe, DIARRHEA/VOMITTING, 10/01/16) Bactrim (Verified Allergy, Severe, HIVES, 10/01/16) Past Medical History ESRD Diabetes Anemia Right low knee amputation Hypertension GERD Left leg ulcer CHF Obesity Past Surgical History Right below-knee amputation Left forearm AV fistula Laser surgery to both eyes Right leg skin grafting Reported Medications Reported Meds & Active Scripts Active Reported Proventil Hfa 6.7 GM Inh (Albuterol Sulfate) 90 Mcg/Act Aer 1 Puff INH Q4H PRN Sodium Bicarbonate 650 Mg Tab 650 Mg PO BIDPC Omeprazole 20 Mg Cap DAILY Labetalol (Labetalol HCl) 300 Mg Tab 300 Mg PO TID Lantus Inj (Insulin Glargine) 100 Unit/Ml Inj 45 BID Novolog Inj (Insulin Aspart) 1,000 Unit/10 Ml Vial 0 SQ DIRECTED Sliding Scale as directed. Hydralazine (Hydralazine HCl) 50 Mg Tab 50 Mg PO BID Take with a meal Gabapentin 100 Mg Cap 100 Mg PO BID Lasix (Furosemide) 40 Mg Tab 40 Mg PO BID Epogen Inj (Epoetin Caleb) 20,000 Unit/Ml Inj 60,000 Units SQ DIRECTED Lipitor (Atorvastatin Calcium) 80 Mg Tab 80 Mg PO HS Tylenol (Acetaminophen) 325 Mg Tab 650 Mg PO Q6H PRN Active Ordered Medications Current Medications Medications (Trade) Dose Ordered Sig/Jade Route Start Time Stop Time Status Last Admin (Proair Hfa Inh) 1 puff Q4H PRN INH 10/03/16 21:00 (Lipitor) 80 mg HS PO 10/03/16 21:00 10/03/16 21:29 (Neurontin) 100 mg BID PO 10/03/16 21:00 10/04/16 09:00 (Apresoline) 50 mg BID PO 10/03/16 21:00 10/04/16 09:00 (Trandate) 300 mg TID PO 10/04/16 09:00 10/04/16 09:00 (Sodium Bicarbonate) 650 mg BIDPC PO 10/04/16 09:00 10/04/16 09:00 (NS Flush) 2 ml BID IVF 10/03/16 21:15 10/04/16 08:59 (NS Flush) 2 ml UNSCH PRN IVF 10/03/16 21:15 (Vasotec Inj) 1.25 mg Q4H PRN IV 10/03/16 22:00 (Aspirin) 325 mg DAILY PO 10/04/16 09:00 10/04/16 09:00 (D50w (Vial) Inj) 25 ml UNSCH PRN IV PUSH 10/03/16 21:15 10/04/16 06:05 (Glucagon Inj) 1 mg UNSCH PRN IM/SQ 10/03/16 21:15 (Heparin Inj) 5,000 units Q8HR SQ 10/03/16 22:00 10/04/16 06:00 (Protonix) 20 mg DAILY PO 10/04/16 09:00 10/04/16 09:00 (Lasix) 40 mg BID@09,18 PO 10/04/16 09:00 10/04/16 09:00 (Norvasc) 10 mg DAILY PO 10/04/16 09:00 10/04/16 09:00 (Levemir Inj) 11 units Q12HR SQ 10/04/16 09:00 10/04/16 21:00 Hold Family History Both parents have CVAs and from complication Social History Denies smoking or alcohol use Physical Exam Vital Signs Vital Signs Date Time Temp Pulse Resp B/P Pulse Ox O2 Delivery O2 Flow Rate FiO2 10/04/16 10:17 70 10/04/16 09:45 99 21 10/04/16 08:18 96.1 65 18 169/78 100 10/04/16 05:25 98.0 84 18 135/77 97 10/04/16 00:04 98.7 67 18 149/79 99 10/03/16 22:00 99 10/03/16 21:31 68 18 156/68 99 Room Air 10/03/16 20:23 75 19 145/70 99 Room Air 10/03/16 19:11 71 18 147/69 99 Room Air 10/03/16 18:00 77 18 141/99 100 Room Air 10/03/16 15:10 81 18 100 Room Air 10/03/16 15:10 97.8 84 18 171/70 100 Room Air Physical Exam GENERAL: Well-nourished, well-developed patient. SKIN: Warm and dry. HEAD: Normocephalic. EYES: No scleral icterus. No injection or drainage. NECK: Supple, trachea midline. No JVD or lymphadenopathy. CARDIOVASCULAR: Regular rate and rhythm without murmurs, gallops, or rubs. RESPIRATORY: Breath sounds equal bilaterally. No accessory muscle use. GASTROINTESTINAL: Abdomen soft, non-tender, nondistended. EXTREMITIES: No cyanosis, mild edema left. Right BKA, left forearm AV fistula NEUROLOGICAL: Awake, alert, and oriented x 3. Her speech is slurred. Laboratory Laboratory Tests Test 10/03/16 10/03/16 10/03/16 10/04/16 15:36 15:40 17:00 01:23 Urine Color YELLOW Urine Turbidity HAZY Urine pH 5.5 Urine Specific [place] 1.016 Urine Protein 100 Urine Glucose (UA) NEG Urine Ketones NEG Urine Occult Blood NEG Urine Nitrite NEG Urine Bilirubin NEG Urine Urobilinogen LESS THAN 2.0 Urine Leukocyte Esterase NEG Urine RBC LESS THAN 1 Urine WBC 3 Urine Squamous Epithelial <1 Cells Urine Amorphous Sediment RARE Urine Bacteria OCC Urine Hyaline Casts 3 Microscopic Urinalysis Comment CATH-CULT NOT IND White Blood Count 6.6 Red Blood Count 3.90 Hemoglobin 9.8 Hematocrit 30.8 Mean Corpuscular Volume 79.0 Mean Corpuscular Hemoglobin 25.3 Mean Corpuscular Hemoglobin 32.0 Concent Red Cell Distribution Width 15.7 Platelet Count 418 Mean Platelet Volume 9.4 Neutrophils (%) (Auto) 65.3 Lymphocytes (%) (Auto) 22.8 Monocytes (%) (Auto) 6.9 Eosinophils (%) (Auto) 4.1 Basophils (%) (Auto) 0.9 Neutrophils # (Auto) 4.3 Lymphocytes # (Auto) 1.5 Monocytes # (Auto) 0.5 Eosinophils # (Auto) 0.3 Basophils # (Auto) 0.1 CBC Comment DIFF FINAL Differential Comment Sodium Level 139 Potassium Level 3.8 Chloride Level 102 Carbon Dioxide Level 25.6 Anion Gap 11 Blood Urea Nitrogen 42 Creatinine 5.77 Estimat Glomerular Filtration 9 Rate Random Glucose 115 Calcium Level 8.8 Troponin I 0.13 0.11 Total Creatine Kinase 501 Creatine Kinase MB 3.3 Creatine Kinase MB % 0.7 Test 10/04/16 04:30 White Blood Count 5.6 Red Blood Count 3.76 Hemoglobin 9.3 Hematocrit 29.7 Mean Corpuscular Volume 79.0 Mean Corpuscular Hemoglobin 24.7 Mean Corpuscular Hemoglobin 31.3 Concent Red Cell Distribution Width 15.6 Platelet Count 248 Mean Platelet Volume 7.5 Neutrophils (%) (Auto) 55.5 Lymphocytes (%) (Auto) 31.6 Monocytes (%) (Auto) 7.3 Eosinophils (%) (Auto) 4.6 Basophils (%) (Auto) 1.0 Neutrophils # (Auto) 3.1 Lymphocytes # (Auto) 1.8 Monocytes # (Auto) 0.4 Eosinophils # (Auto) 0.3 Basophils # (Auto) 0.1 CBC Comment AUTO DIFF Differential Comment AUTO DIFF CONFIRMED Platelet Estimate NORMAL Platelet Morphology Comment NORMAL Sodium Level 142 Potassium Level 3.8 Chloride Level 107 Carbon Dioxide Level 26.1 Anion Gap 9 Blood Urea Nitrogen 45 Creatinine 5.89 Estimat Glomerular Filtration 9 Rate Random Glucose 51 Calcium Level 8.6 Total Bilirubin 0.4 Aspartate Amino Transf 21 (AST/SGOT) Alanine Aminotransferase 15 (ALT/SGPT) Alkaline Phosphatase 131 Total Creatine Kinase 471 Creatine Kinase MB 3.1 Creatine Kinase MB % 0.7 Troponin I 0.17 Total Protein 7.0 Albumin 3.0 Triglycerides Level 88 Cholesterol Level 117 LDL Cholesterol 58 HDL Cholesterol 41.4 Cholesterol/HDL Ratio 2.82 Result Diagram: 10/04/1642910/04/16429 Assessment and Plan Problem List: (1) ESRD (end stage renal disease) on dialysis Plan: Patient is due for dialysis, she missed the her Monday appointment we will do to a treatment today and schedule her for Monday plan to remove fluids cautiously, continue to monitor her progress she is recovering from a stroke. I have discussed his care with the residents and Dr. Preston. (2) Lacunar infarction Plan: Neurology consult has been ordered (3) Diabetes Plan: Continue monitor blood glucose (4) HTN (hypertension) Plan: Blood pressure is fluctuating monitor during dialysis Sydney Raza MD Oct 04, 2016 11:36
--- NOTE | 2016-10-04 12:04 | RADRPT ---
EXAM DATE/TIME: 10/04/2016 10:08 [place] COMPARISON: No previous studies available for comparison. INDICATIONS : Cerebrovascular accident. MEDICAL HISTORY : Cerebrovascular disease. Hypercholesterolemia. Congestive heart failure. Diabetes. Hypertension. Izabella lysis. Sleep apnea. GERD. Renal failure. Anemia. Blood transfusion. SURGICAL HISTORY : Retinopathy. Laser surgery bilateral eyes. Right leg debridment with skin graft. Left arm fistula. ENCOUNTER: Initial ACUITY: 1 day PAIN SCORE: 4/10 LOCATION: Bilateral neck PEAK SYSTOLIC VELOCITIES (cm/sec): ICA/CCA RATIO: Right: 0.6 Left: 1.2 ICA: Right: 73 Left: 153 CCA: Right: 128 Left: 126 ECA: Right: 110 Left: 107 VERTEBRAL: Right: 75 antegrade Left: 64 antegrade Elevated flow velocities and ICA/CCA ratios have been found to correlate with increased degrees of vessel stenosis, calculated as percentage of diameter relative to a normal segment of distal ICA/CCA FINDINGS: RIGHT CAROTID: There is minimal plaque at the right carotid bulb region. No significant stenosis is visualized. The waveforms are within normal limits. LEFT CAROTID: No significant stenosis is visualized. The waveforms are within normal limits. VERTEBRAL ARTERIES: Antegrade flow is seen in both vertebral arteries. MISCELLANEOUS: None. CONCLUSION: No significant stenosis is seen. Deshawn Mccrary MD on October 04, 2016 at 11:59 Board Certified Radiologist. This report was verified electronically.
--- NOTE | 2016-10-04 13:15 | HHI.FPPN ---
Subjective Remarks Attending note: Pleasant 56 year-old -Serbian woman who was admitted through the emergency room with dizziness, blurring of vision, history of intermittent vertigo, history of reported possible diplopia. Patient is on hemodialysis, her certified welder is Dr. Raza. After her dialysis 09/30/16 she began aware of at the time "deep sleep ", the above neurologic symptoms. Patient return time and then was seen in the emergency room and subsequently complaints, at that time no acute event was suspected. Patient returns with persistent symptoms. Please refer to resident's history and physical for complete discussion of history of present illness, past medical history, family history social history and review of systems. Objective Vitals Vital Signs Date Time Temp Pulse Resp B/P Pulse Ox O2 Delivery O2 Flow Rate FiO2 10/04/16 10:17 70 10/04/16 09:45 99 21 10/04/16 08:18 96.1 65 18 169/78 100 10/04/16 05:25 98.0 84 18 135/77 97 10/04/16 00:04 98.7 67 18 149/79 99 10/03/16 22:00 99 10/03/16 21:31 68 18 156/68 99 Room Air 10/03/16 20:23 75 19 145/70 99 Room Air 10/03/16 19:11 71 18 147/69 99 Room Air 10/03/16 18:00 77 18 141/99 100 Room Air 10/03/16 15:10 81 18 100 Room Air 10/03/16 15:10 97.8 84 18 171/70 100 Room Air I/O 10/03/16 10/03/16 10/03/16 10/04/16 10/04/16 10/04/16 07:00 15:00 23:00 07:00 15:00 23:00 Intake Total 480 ml Balance 480 ml Intake Oral 480 ml # Voids 2 # Bowel Movements 1 Result Diagram: 10/04/16 0430 10/04/16 0430 Objective Remarks Vital signs noted. Afebrile. Gen. appearance: Middle-aged woman who is pleasant conversation , makes excellent eye contact, normal mood. Relates her being anxious about her medical condition. HEENT: Refer to resident's note. Lungs: Clear to auscultation diminished breath sounds. Cardiovascular: S1-S2, no rubs or murmurs appreciated. Abdomen: Soft and protuberant, no organomegaly, no tenderness, no masses evident. Extremities: Right BKA, fistula left upper extremity Please refer to the resident's physical exam for complete discussion details. A/P Assessment and Plan Clinical assessment: Pleasant 56-year-old woman admitted with what appears by history to be vertebrobasilar insufficiency, TIA, versus lacunar infarct. Discussed with Dr. Raza. Probable conservative management. Very complex with her chronic renal insufficiency and hemodialysis. As noted patient was seen and examined. Case was discussed and reviewed with the resident team. Agree with plan of care as discussed with me and documented in the resident note. Problem List: (1) Lacunar infarction Status: Acute Plan: Patient presenting with dizziness, imbalance and slowed speech with mild aphasia since Monday. MRI showing acute and chronic lacunar infarcts in the brainstem. Brain MRI: Significant vertebral disease with lacunar infarcts in the brainstem both acute and chronic. Mild periventricular white matter changes in the supratentorial brain. There is no parenchymal hemorrhage. CBC: WBC 6.6, H/H 9.8/30.8, platelets 418 BMP: Creatinine 5.77, BUN 42, glucose 114, otherwise WNL Lipid panel: Pending A1c: Pending CK 501 Troponin: 0.13, pending 2 EKG: Sinus rhythm with no significant change compared to prior EKG, medical team EKG read, pending 2 UA: Hazy, 100 of protein, occasional bacteria with culture not indicated Echo: Pending Carotid ultrasound: Pending Neuro checks every 4 hours [address] precautions in place, bedrest Nothing by mouth until patient passed a swallow evaluation Aspirin 325 mg daily Vasotec 1.25 mg every 4 hours when necessary for SBP greater than 220 Consult rehabilitation medicine Case management consult PT/OT consult Consult neurology (2) Hemodialysis patient Status: Acute Plan: Patient currently on MWF hemodialysis due to kidney failure. Patient did not receive hemodialysis on 10/03/69. CBC: WBC 6.6, H/H 9.8/30.8, platelets 418 BMP: Creatinine 5.77, BUN 42, glucose 115, otherwise WNL CK 501 Troponin: 0.13, pending 2 EKG: Sinus rhythm with no significant change compared to prior EKG, medical team EKG read, pending 2 UA: Hazy, 100 of protein, occasional bacteria with culture not indicated Epogen held, scheduled for Monday per patient report Sodium bicarbonate 650 mg twice a day, held Consult Nephrology (3) Diabetes Status: Acute Plan: Patient with type 2 diabetes currently on Lantus 45 units twice a day and SSI. BMP: Creatinine 5.77, BUN 42, glucose 114, otherwise WNL A1c: Pending Lantus 45 units twice a day, hold Gabapentin 100 mg by mouth twice a day, hold due to kidney function Levemir 11 units twice a day Low-dose sliding scale insulin per protocol Placed on diabetic diet once patient has passed swallow evaluation (4) GERD (gastroesophageal reflux disease) Status: Acute Plan: Patient with reported history of GERD Hold home omeprazole 20mg QD Protonix 20mg daily (5) HTN (hypertension) Status: Acute Plan: Patient with reported chronic hypertension Continue Lasix 40mg BID Continue hydralazine 50 mg twice a day Continue labetalol 300 mg 3 times a day Continue amlodipine 10 mg daily Vasotec 1.25 mg every 4 hours when necessary for SBP greater than 220 (6) No contraindication to deep vein thrombosis (DVT) prophylaxis Status: Acute Plan: Heparin 5000 units every 8 hours SCD/TEDs (7) Nutrition, metabolism, and development symptoms Status: Acute Plan: Fluids: Deferred at this time due to kidney function Electrolyte: Continue to monitor Diet: Nothing by mouth until patient is able to pass swallow evaluation Cb Nelson MD Oct 04, 2016 13:15
--- NOTE | 2016-10-04 13:15 | MB ---
cc: CANDICE CAT DATE OF CONSULTATION 10/04/2016 NEUROLOGY CONSULT NOTE REASON FOR CONSULTATION Stroke. HISTORY OF PRESENT ILLNESS A 56-year-old -[place] female with past medical history of CKD on hemodialysis, diabetes mellitus, anemia, right lower extremity below-knee amputation (BKA), chronic stuttering. The patient presented with a chief complaint of dizziness to the [facility] emergency department. This has started on Monday09/30/2016. During her hemodialysis appointment she started feeling dizzy and lethargic and the dizziness was episodic with room spinning and feeling imbalanced with mild visual disturbances described as, "Not able to focus on objects or images. He denies weakness of an extremity, slurred speech, difficulty finding the right words, but states that she had mild headache associated with that. She also states that she had some change in the tone of the voice "hoarseness" with questionable difficulty in swallowing. She denies any history of TIA or stroke and she is currently on no antiplatelet therapy. REVIEW OF SYSTEMS A 12-point review of systems is negative except for as stated in the HPI. PAST MEDICAL HISTORY 1. Type 2 diabetes mellitus. 1. CKD on hemodialysis Monday, Monday, Monday. 2. Cataract. 3. Anemia. 4. Gastroesophageal reflux disease. 5. Hypertension. PAST SURGICAL HISTORY Right below-knee amputation (BKA). ALLERGIES AMPICILLIN. BACTRIM. FAMILY HISTORY Mother with diabetes, stroke, congestive heart failure and kidney failure. Father with diabetes, stroke, congestive heart failure and kidney failure. SOCIAL HISTORY Lives at home by herself in [facility] without assistance. Denies alcohol and quit smoking two years ago and denies illicit drug use. PHYSICAL EXAMINATION General: A good historian, pleasant, not in acute distress. HEENT: Atraumatic, normocephalic. Intact hearing. Vision is blurred and unable to focus. Cardiovascular: Regular rate and rhythm with no murmurs. Respiratory: Clear to auscultation. No wheezes. Musculoskeletal: Extremities without cyanosis or edema. Right BKA. Left upper extremity with fistula in place for hemodialysis. Neurological: Awake, alert, oriented to time, person and place. Intact speech. Intact speech content. Decreased visual acuity bilateral. No peripheral field abnormality is noticed, no nystagmus. Bilateral questionable exophthalmos. Mild hoarseness of voice. Normal elevation of the uvula. Intact movement of the tongue. Cranial nerves II-XII are grossly intact. Upper extremity muscle strength is 5/5. Right upper extremity incoordination, slow and abnormal [id number] on the right upper extremity, intact on the left upper extremity. Lower extremity - Normal [id number] on the left, unable to perform the test because of right BKA. Muscle strength is 5/5 bilateral, symmetrical throughout other than a right BKA. Sensation is bilaterally symmetrical, intact, other than right BKA. Reflexes are 2+ bilateral upper extremities and left lower extremity. Psychologic: Normal judgment, pleasant, cooperative, no hallucination. LABORATORY DATA White blood cells 6.6, hemoglobin 9.8, MCV 79, platelet count 418. sodium 139, potassium 3.8, chloride 102, anion gap 11, BUN 42, creatinine 5.77, calcium 8.8.Troponin 0.13. DIAGNOSTIC IMAGING - MRI of the brain without contrast revealed significant vertebral basilar disease with lacunar infarcts in the brain stem, both acute and chronic. Mild periventricular white matter changes in the supratentorial brain. No parenchymal hemorrhage. PLAN 1. Neuro checks q. 4 hourly. 2. MRA head. 3. Carotid ultrasound. 4. Fall precautions. 5. PT, OT and speech recommendations are appreciated. 6. N.p.o. 7. aspirin 325 mg daily. 8. Allow for permissive hypertension. 9. Treat for blood pressure greater than 220/110. 10. DVT prophylaxis with SCDs. 11. Cardiac echo. Thank you for the opportunity to participate in the care of your patient. MD NAZANIN Queen/ANGUS /9:27 AM /1:03 PM KEJNI
--- NOTE | 2016-10-04 13:57 | HHI.FPPN ---
Subjective Remarks No events overnight. Afebrile, vitals are stable. Patient continues to have slurred speech. She states she has always had a stutter her entire life at baseline and her current state of speech is new. States her vision continues to be blurred. Denies headaches, chest pain, shortness of breath. Objective Vitals Vital Signs Date Time Temp Pulse Resp B/P Pulse Ox O2 Delivery O2 Flow Rate FiO2 10/04/16 10:17 70 10/04/16 09:45 99 21 10/04/16 08:18 96.1 65 18 169/78 100 10/04/16 05:25 98.0 84 18 135/77 97 10/04/16 00:04 98.7 67 18 149/79 99 10/03/16 22:00 99 10/03/16 21:31 68 18 156/68 99 Room Air 10/03/16 20:23 75 19 145/70 99 Room Air 10/03/16 19:11 71 18 147/69 99 Room Air 10/03/16 18:00 77 18 141/99 100 Room Air 10/03/16 15:10 81 18 100 Room Air 10/03/16 15:10 97.8 84 18 171/70 100 Room Air I/O 10/03/16 10/03/16 10/03/16 10/04/16 10/04/16 10/04/16 07:00 15:00 23:00 07:00 15:00 23:00 Intake Total 480 ml Balance 480 ml Intake Oral 480 ml # Voids 2 # Bowel Movements 1 Result Diagram: 10/04/1642910/04/16 043 Objective Remarks GENERAL: Lying in bed in NAD SKIN: Cool and dry without rash or ecchymosis. HEENT: Atraumatic, normocephalic. EOMI. Oropharynx clear with no erythema. Nose without rhinorrhea. MMM. CARDIOVASCULAR: RRR with no MGR. RESPIRATORY: CTAB with no CRW. No increased work of breathing. GASTROINTESTINAL: Abdomen soft, non-tender, nondistended with +BS. MUSCULOSKELETAL: Extremities without cyanosis or edema. RLE with BKA wrapped in MARY bandage for use with prosthetic. LUE with fistula for hemodialysis. NEUROLOGICAL: AAOx3. Slowed speech with mild aphasia. calibration specialist grossly intact. Upper and lower extremities neurovascularly intact with appropriate strength and sensation. A/P Assessment and Plan 56 year old female with h/o T2DM, anemia, HD MWF, s/p RLE BKA admitted with the chief complaint of dizziness likely due to a CVA. Problem List: (1) Lacunar infarction Status: Acute Plan: Patient presenting with dizziness, imbalance and slowed speech with mild aphasia since Monday. MRI showing acute and chronic lacunar infarcts in the brainstem. - Brain MRI: Significant vertebral disease with lacunar infarcts in the brainstem both acute and chronic. Mild periventricular white matter changes in the supratentorial brain. There is no parenchymal hemorrhage. - Echo: Pending - Carotid ultrasound: Pending - Neuro checks q4h - Fall precautions in place, bedrest - Aspirin 325 mg daily Consult neurology - MRA head - PT/OT consult - Consult rehabilitation medicine - Case management consult (2) Hemodialysis patient Status: Acute Plan: Patient currently on MWF hemodialysis due to renal failure. Patient did not receive hemodialysis on Monday, 10/03 Electrolytes within normal limits today Cr 5.89 Consulted Nephrology - HD today and continue MWF schedule thereafter (3) Diabetes Status: Acute Plan: Patient with type 2 diabetes currently on Lantus 45 units twice a day and SSI. A1c: Pending Hold Lantus 45 units twice a day Hold Levemir 11 units bid due to hypoglycemia Low-dose ISS Gabapentin 100 mg by mouth twice a day, hold due to kidney function (4) HTN (hypertension) Status: Acute Plan: Continue Lasix 40 mg bid Continue hydralazine 50 mg bid Continue labetalol 300 mg tid Continue amlodipine 10 mg daily Vasotec 1.25 mg q4h prn SBP > 220 (5) No contraindication to deep vein thrombosis (DVT) prophylaxis Status: Acute Plan: Heparin 5000 units subq q8h SCDs/TEDs (6) Nutrition, metabolism, and development symptoms Status: Acute Plan: Fluids: Deferred at this time due to kidney function Electrolytes: Continue to monitor Nutrition: Diabetic diet Kendall Mittal MD R1 Oct 04, 2016 13:57
[2016-10-04 16:06] LABS: HEMOGLOBIN A1a 1.9 %; HEMOGLOBIN A1b 0.8 %; HEMOGLOBIN Ao 82.5 %; HEMOGLOBIN F 2.5 %; HEMOGLOBIN LA1C 1.3 %; HEMOGLOBIN P3 3.4 %
--- NOTE | 2016-10-04 19:03 | EC ---
Study Study Date:10/04/2016 STUDY CONCLUSIONS SUMMARY - Left ventricle: The cavity size was normal. Wall thickness was normal. Systolic function was normal. The estimated ejection fraction was in the range of 50% to 55%. Wall motion was normal; there were no regional wall motion abnormalities. - Aortic valve: Trace regurgitation. - Pulmonary arteries: PA peak pressure: 33mm Hg (S). Impressions: No cardiac source of emboli was indentified. If LV function is below 40, please consider prescribing an ACEI or ARB or document rationale for non-use. PROCEDURE DATA STUDY STATUS: Elective. Procedure: Transthoracic echocardiography. Image quality was good. Scanning was performed from the parasternal, apical, and subcostal acoustic windows. Study completion: The patient tolerated the procedure well. Transthoracic echocardiography. M-mode, complete 2D, complete spectral Doppler, and color Doppler. Patient status: Inpatient. CARDIAC ANATOMY LEFT VENTRICLE: The cavity size was normal. Wall thickness was normal. Systolic function was normal. The estimated ejection fraction was in the range of 50% to 55%. Wall motion was normal; there were no regional wall motion abnormalities. AORTIC VALVE: Trileaflet; normal thickness leaflets. Doppler: Transvalvular velocity was within the normal range. There was no stenosis. Trace regurgitation. Mean gradient: 9mm Hg (S). Peak gradient: 18mm Hg (S). AORTA: Aortic root: The aortic root was normal in size. MITRAL VALVE: Structurally normal valve. Doppler: Transvalvular velocity was within the normal range. There was no evidence for stenosis. No regurgitation. Peak gradient: 4mm Hg (D). LEFT ATRIUM: The atrium was normal in size. RIGHT VENTRICLE: The cavity size was normal. Wall thickness was normal. PULMONIC VALVE: Doppler: Transvalvular velocity was within the normal range. There was no evidence for stenosis. No regurgitation. TRICUSPID VALVE: Structurally normal valve. Doppler: Transvalvular velocity was within the normal range. Trace regurgitation. PULMONARY ARTERY: The main pulmonary artery was normal-sized. Systolic pressure was within the normal range. RIGHT ATRIUM: The atrium was normal in size. PERICARDIUM: There was no pericardial effusion. SYSTEMIC VEINS: Inferior vena cava: The vessel was normal in size. BASIC MEASUREMENTS ADULT Normal Left ventricle LV internal dimension, ED, chordal level, *40.1 mm 43-52 PLAX LV posterior wall thickness, ED 9.56 mm IVS/LVPW ratio, ED 1.28 <1.3 Ventricular septum Septal thickness, ED 12.2 mm Aortic valve Leaflet separation 23 mm 15-26 Left atrium Anterior-posterior dimension 33 mm Right ventricle RV internal dimension, ED, PLAX 24 mm 19-38 BASIC MEASUREMENTS ADULT Normal Aortic valve Leaflet separation 23 mm 15-26 Aorta Root diameter, ED 34 mm 20-37 DOPPLER MEASUREMENTS ADULT Normal Main pulmonary artery Pressure, S *33 mm Hg =30 Aortic valve Peak velocity, S 212 cm/s Mean velocity, S 136 cm/s VTI, S 46.9 cm Mean gradient, S 9 mm Hg Peak gradient, S 18 mm Hg Mitral valve Peak E-wave velocity 100 cm/s Peak A-wave velocity 130 cm/s Peak gradient, D 4 mm Hg Peak E/A ratio 0.8 Tricuspid valve Regurgitant peak velocity 176 cm/s Peak RV-RA gradient, S 12 mm Hg Maximal regurgitant velocity 176 cm/s Systemic veins Estimated CVP 10 mm Hg Right ventricle RV pressure, S *33 mm Hg <30 LEGEND: Mean values are shown as u=mean value. Asterisk (*) simms values outside specified normal range. Prepared and signed by Dilip Tovar [id number]
[2016-10-04] MEDS: ATORVASTATIN 80 MG TAB PO SCH (21:23)
[2016-10-04 22:25] VITALS: BP 147/77; PULSE 74; RESP 18; TEMP 98; O2SAT 97
[2016-10-05] VITALS: BP 141/74; PULSE 78; RESP 18; TEMP 98; O2SAT 96
[2016-10-05 03:21] VITALS: PULSE 68
[2016-10-05 05:00] VITALS: BP 147/72; PULSE 67; RESP 18; TEMP 98.9; O2SAT 95
[2016-10-05 05:33] LABS: AUTOMATED NEUTROPHIL # 3.2 TH/MM3 (1.8-7.7); BASOPHIL % 0.8 % (0.0-2.0); EOSINOPHIL # 0.2 TH/MM3 (0-0.4); EOSINOPHIL % 4.3 % (0.0-4.0); HEMATOCRIT 31.3 % (35.0-46.0); LYMPH % 28.5 % (9.0-44.0); LYMPHOCYTE # 1.5 TH/MM3 (1.0-4.8); MEAN CORPUSCULAR HEMOGLOBIN 24.5 PG (27.0-34.0); MEAN CORPUSCULAR HGB CONC 30.6 % (32.0-36.0); MONO % 7.7 % (0.0-8.0); NEUT % 58.7 % (16.0-70.0); PLATELET COUNT 237 TH/MM3 (150-450); RED BLOOD COUNT 3.91 MIL/MM3 (4.00-5.30); RED CELL DISTRIBUTION WIDTH 15.3 % (11.6-17.2); WHITE BLOOD COUNT 5.4 TH/MM3 (4.0-11.0)
[2016-10-05 05:40] LABS: HEMO FLAGS AUTO DIFF
[2016-10-05 05:47] LABS: POTASSIUM 4.1 MEQ/L (3.5-5.1)
[2016-10-05] MEDS: INSULIN ASPART SUPPLEMENTAL SCALE SQ SCH ×4 (06:17→20:52)
[2016-10-05] MEDS: HEPARIN SODIUM - SQ 10,000 UNITS/ML VIAL SQ SCH (06:30)
[2016-10-05] MEDS ORDERED: hydrALAZINE HCL 10 MG TAB PO PRN (07:00)
[2016-10-05 07:08] LABS: SCAN/DIFF AUTO DIFF CONFIRMED
[2016-10-05 08:00] VITALS: BP 136/67; PULSE 66; PULSE 68; RESP 18; TEMP 98; O2SAT 98
[2016-10-05] MEDS: SODIUM CHLORIDE 0.9% FLUSH 5 ML FLUSH IVF SCH ×2 (09:00→20:52)
[2016-10-05] MEDS: PANTOPRAZOLE SOD 20 MG DELAYED RELEASE TAB PO SCH (09:19)
[2016-10-05] MEDS: ASPIRIN 325 MG TAB PO SCH (09:19)
[2016-10-05] MEDS: GABAPENTIN 100 MG CAP PO SCH ×2 (09:20→20:52)
[2016-10-05] MEDS: FUROSEMIDE 40 MG TAB PO SCH ×2 (09:20→19:47)
[2016-10-05] MEDS: SODIUM BICARBONATE 650 MG TAB PO SCH ×2 (09:20→19:44)
--- NOTE | 2016-10-05 11:22 | HHI.FPPN ---
Subjective Remarks No acute events overnight. Vital signs unremarkable. This morning she is still complains of some vision changes and changes in her voice that is typical in the morning. She otherwise feels well and has no complaints. Objective Vitals Vital Signs Date Time Temp Pulse Resp B/P Pulse Ox O2 Delivery O2 Flow Rate FiO2 10/05/16 08:00 98.0 66 18 136/67 98 10/05/16 05:00 98.9 67 18 147/72 95 10/05/16 03:21 68 10/05/16 00:00 98.0 78 18 141/74 96 10/04/16 22:25 98.0 74 18 147/77 97 I/O 10/04/16 10/04/16 10/04/16 10/05/16 10/05/16 10/05/16 07:00 15:00 23:00 07:00 15:00 23:00 Intake Total 240 ml Output Total 1000 ml Balance -760 ml Intake Oral 240 ml Output Hemodialysis 1000 ml # Voids 1 # Bowel Movements 1 Result Diagram: 10/05/16 0452 10/05/16 0452 Objective Remarks GENERAL: Lying in bed in NAD SKIN: Cool and dry without rash or ecchymosis. CARDIOVASCULAR: RRR with no MGR. RESPIRATORY: Minimum bibasilar crackles but with good air movement. MUSCULOSKELETAL: Extremities without cyanosis or edema. RLE with BKA wrapped in MARY bandage for use with prosthetic. Left lower extremity without edema or calf tenderness. NEUROLOGICAL: AAOx3. Slowed speech with mild aphasia. minute clerk grossly intact. Upper and lower extremities neurovascularly intact with appropriate strength and sensation. A/P Assessment and Plan 56 year old female with h/o T2DM, anemia, HD MWF, s/p RLE BKA admitted with the chief complaint of dizziness likely due to a CVA. Discharge Planning Pending clearance from neurology. sdw Dr. Nelson and Dr. Mittal Problem List: (1) Lacunar infarction Status: Acute Plan: Patient presenting with dizziness, imbalance and slowed speech with mild aphasia since Monday. MRI showing acute and chronic lacunar infarcts in the brainstem. -Counseled patient that effects need time to improve -OT: Recommended bedside commode and rehabilitation -PT: recommend home hang PT Neurology consulted: Appreciate recommendations * Neuro checks * Aspirin * Allow for permissive HTN * Will contact neurology about next steps in treatment process/discharge Imaging: * Brain MRI: Significant vertebral disease with lacunar infarcts in the brainstem both acute and chronic. Mild periventricular white matter changes in the supratentorial brain. There is no parenchymal hemorrhage. * Echo: EF of 50-55%. No cardiac source of emboli was identified * Carotid ultrasound: No significant stenosis seen Medications: * Aspirin 325 * Atorvastatin 80 mg * Furosemide 40mg BID (home medication) (2) Hemodialysis patient Status: Chronic Plan: Patient currently on MWF hemodialysis due to renal failure. Patient did not receive hemodialysis on Monday, 10/03 Nephrology: * dialysis 10/04 * will resume MWF schedule -Electrolytes unremarkable (3) Diabetes Status: Acute Plan: Patient with type 2 diabetes currently on Lantus 45 units twice a day and SSI at home -A1c 7.4 -Levemir held as patient is not requiring supplemental insulin Continue home Gabapentin (4) HTN (hypertension) Status: Chronic Plan: Home Hydralazine, labetalol, and amlodipine help to allow for permissive HTN --Hydralazine PRN (5) Nutrition, metabolism, and development symptoms Status: Acute Plan: Fluids: none Electrolytes: Continue to monitor Nutrition: Diabetic diet DVT PPX: SCS, Heparin stopped GI PPX: Protonix Problem Qualifiers (1) Diabetes: Milady Menendez MD R2 Oct 05, 2016 11:21
--- NOTE | 2016-10-05 14:18 | HHI.NPPN ---
Subjective History of Present Illness 56 year old with CVA, ESRD, DM , HTN Objective Data Data 10/04/16 10/05/16 19:00 07:00 Intake Total 240 ml Output Total 1000 ml Balance -1000 ml 240 ml Intake Oral 240 ml Output Hemodialysis 1000 ml # Voids 1 # Bowel Movements 1 Vital Signs Date Time Temp Pulse Resp B/P Pulse Ox O2 Delivery O2 Flow Rate FiO2 10/05/16 08:00 68 10/05/16 08:00 98.0 66 18 136/67 98 10/05/16 05:00 98.9 67 18 147/72 95 10/05/16 03:21 68 10/05/16 00:00 98.0 78 18 141/74 96 10/04/16 22:25 98.0 74 18 147/77 97 -: 10/05/16 0452 10/05/16 0452 Physical Exam General Appearance: Well Developed, Well Nourished Neck Neck Exam: Neck Supple Pulmonary Resp Exam: Clear Bilaterally, Breath Sounds Equal Cardiology CV Exam: Regular, Normal Sinus Rhythm Gastrointestinal/Abdomen GI Exam: Soft, Bowel Sounds Present Extremeties Extremities Exam: No Edema Assessment/Plan Problem List: (1) ESRD (end stage renal disease) on dialysis Plan: Patient is seen during hemodialysis 1.5 L UF today doing better speech slow to improve follow in am (2) Lacunar infarction Plan: Neurology consult noted ASA 325 mg daily (3) Diabetes Plan: Continue monitor blood glucose (4) HTN (hypertension) Plan: Blood pressure is stable monitor during dialysis Problem Qualifiers (1) Diabetes: Sydney aRza MD Oct 05, 2016 14:18
[2016-10-05] MEDS ORDERED: AMLO10TA2 PO (16:01)
[2016-10-05] MEDS ORDERED: WHEEMIS3 (16:05)
[2016-10-05] MEDS ORDERED: BEDSIDE COMMODE1 MI1 (16:05)
--- NOTE | 2016-10-05 16:07 | HHI.DCPOC ---
Discharge Care Plan Diagnosis: (1) Lacunar infarction (2) Stroke (3) ESRD (end stage renal disease) on dialysis Goals to Promote Your Health * To prevent worsening of your condition and complications * To maintain your health at the optimal level Directions to Meet Your Goals Take your medications as prescribed Follow your dietary instruction Follow activity as directed Keep your appointments as scheduled Take your immunizations and boosters as scheduled If your symptoms worsen call your PCP, if no PCP go to Urgent Care Center or Emergency Room Smoking is Dangerous to Your Health. Avoid second hand smoke Call the 24-hour hour crisis hotline for domestic abuse at Milady Menendez MD R2 Oct 05, 2016 16:07
--- NOTE | 2016-10-05 16:08 | HHI.FF ---
Face to Face Verification Diagnosis: (1) Lacunar infarction (2) Stroke (3) Hx of right BKA (4) ESRD (end stage renal disease) on dialysis Physical Therapy Order: Evaluate and Treat, Improve ambulation Occupational Therapy Order: Evaluate and Treat Speech Therapy Order: To Improve: Speech and communication skills Home Health Nursing Order: Medical education Signs/symptoms of disease process I have seen patient Mary Lou Vasquez on 10/05/16. My clinical findings support the need for the requested home health care services because: Ltd mobility - disease progression High risk of falls I certify that my clinical findings support that this patient is homebound because: Unsteady gait/balance Unsafe to leave home unassisted Milady Menendez MD R2 Oct 05, 2016 16:08 Kendall Mittal MD R1 Oct 06, 2016 12:12 Milady Menendez MD R2 Oct 05, 2016 16:08
--- NOTE | 2016-10-05 17:09 | HHI.PR ---
Review/Management Diagnosis Acute lacunar ischemic stroke DIAGNOSTIC IMAGING - MRI of the brain without contrast revealed significant vertebral basilar disease with lacunar infarcts in the brain stem, both acute and chronic. Mild periventricular white matter changes in the supratentorial brain. No parenchymal hemorrhage. Plan - Neuro checks q. 4 hourly. - MRA head. - Fall precautions. - PT, OT and speech recommendations are appreciated. - Aspirin 81mg daily. - Resume BP medications -DVT prophylaxis with SCDs. - Placement Diagnosis/Plan: Subjective Subjective Comments No acute events reported Patient states that she feels better, less incoordinated in her right UE, denies difficulty in swallowing Sister at bed side confirms that patient has had chronic stuttering and does not feel that she is slurring her speech ECHO EF 50-55%, no thrombus CUS with no hemodynamically significant stenosis. Active Medications Current Medications Medications (Trade) Dose Ordered Sig/Jade Route Start Time Stop Time Status Last Admin (Proair Hfa Inh) 1 puff Q4H PRN INH 10/03/16 21:00 (Lipitor) 80 mg HS PO 10/03/16 21:00 10/04/16 21:23 (Neurontin) 100 mg BID PO 10/03/16 21:00 10/05/16 09:20 (Apresoline) 50 mg BID PO 10/03/16 21:00 Hold 10/04/16 09:00 (Trandate) 300 mg TID PO 10/04/16 09:00 Hold 10/04/16 14:21 (Sodium Bicarbonate) 650 mg BIDPC PO 10/04/16 09:00 10/05/16 09:20 (NS Flush) 2 ml BID IVF 10/03/16 21:15 10/04/16 21:00 (NS Flush) 2 ml UNSCH PRN IVF 10/03/16 21:15 (Aspirin) 325 mg DAILY PO 10/04/16 09:00 10/05/16 09:19 (D50w (Vial) Inj) 25 ml UNSCH PRN IV PUSH 10/03/16 21:15 10/04/16 06:05 (Glucagon Inj) 1 mg UNSCH PRN IM/SQ 10/03/16 21:15 (Heparin Inj) 5,000 units Q8HR SQ 10/03/16 22:00 Hold 10/05/16 06:30 (Protonix) 20 mg DAILY PO 10/04/16 09:00 10/05/16 09:19 (Lasix) 40 mg BID@18 PO 10/04/16 09:00 10/05/16 09:20 Amlodipine Besylate 10 mg 10 mg DAILY PO 10/04/16 09:00 Hold 10/04/16 09:00 (NS 1000 ml Inj) 1,000 ml @ 0 mls/hr Q0M PRN IV 10/04/16 11:23 10/05/16 11:42 Heparin Sodium (Porcine) 8000 units 8,000 units UNSCH PRN IVF 10/04/16 11:30 Sodium Chloride 1,000 ml @ 200 mls/hr Q5H PRN IV 10/04/16 11:23 10/05/16 11:42 (NS 1000 ml Inj) 1,000 ml @ 0 mls/hr Q0M PRN IV 10/04/16 11:23 (Mannitol Inj) 12.5 gm UNSCH PRN IV 10/04/16 11:30 (Albumin 25% Inj) 25 gm UNSCH PRN IV 10/04/16 11:30 (NS Flush) 5 ml UNSCH PRN IVF 10/04/16 11:30 (Zofran Inj) 4 mg UNSCH PRN IV 10/04/16 11:30 (Tylenol) 650 mg UNSCH PRN PO 10/04/16 11:30 (Benadryl) 25 mg UNSCH PRN PO 10/04/16 11:30 (Nitrostat Sl) 0.4 mg UNSCH PRN SL 10/04/16 11:30 (Catapres) 0.1 mg UNSCH PRN PO 10/04/16 11:30 Hold (Epogen Inj) 10,000 units UNSCH PRN IV 10/04/16 11:30 10/05/16 11:42 (Gelfoam 12 Mm/7 Mm Top) 1 foam UNSCH PRN TOP 10/04/16 11:30 10/05/16 11:42 (Apresoline) 10 mg Q6HR PRN PO 10/05/16 07:00 Allergies Allergies Coded Allergies Ampicillin (Unverified Allergy, Severe, DIARRHEA/VOMITTING, 10/01/16) Bactrim (Verified Allergy, Severe, HIVES, 10/01/16) Exam I&O / VS 10/04/16 10/04/16 10/05/16 15:00 23:00 07:00 Intake Total 240 ml Output Total 1000 ml Balance -760 ml Intake Oral 240 ml Output Hemodialysis 1000 ml # Voids 1 # Bowel Movements 1 Vital Signs Date Time Temp Pulse Resp B/P Pulse Ox O2 Delivery O2 Flow Rate FiO2 10/05/16 08:00 68 10/05/16 08:00 98.0 66 18 136/67 98 10/05/16 05:00 98.9 67 18 147/72 95 10/05/16 03:21 68 10/05/16 00:00 98.0 78 18 141/74 96 10/04/16 22:25 98.0 74 18 147/77 97 Exam Comments General: A good historian, pleasant, not in acute distress. HEENT: Atraumatic, normocephalic. Intact hearing. Vision is blurred Cardiovascular: Regular rate and rhythm with no murmurs. Respiratory: Clear to auscultation. No wheezes. Musculoskeletal: Extremities without cyanosis or edema. Right BKA. Left upper extremity with fistula in place for hemodialysis. Neurological: Awake, alert, oriented to time, person and place. Intact speech. Intact speech content. Decreased visual acuity bilateral. No peripheral field abnormality is noticed, no nystagmus. Bilateral questionable exophthalmos. Mild hoarseness of voice. Normal elevation of the uvula. Intact movement of the tongue. Cranial nerves II-XII are grossly intact. Upper extremity muscle strength is 5/5. Right upper extremity incoordination, slow and abnormal [id number] on the right upper extremity, intact on the left upper extremity. Lower extremity - Normal [id number] on the left, unable to perform the test because of right BKA. Muscle strength is 5/5 bilateral, symmetrical throughout other than a right BKA. Sensation is bilaterally symmetrical, intact, other than right BKA. Reflexes are 2+ bilateral upper extremities and left lower extremity. Psychologic: Normal judgment, pleasant, cooperative, no hallucination. Objective Radiology Results Last 72 hours Impressions Carotid Artery Ultrasound 10/04/16 0000 Signed Impressions: Service Date/Time: Tuesday, October 04, 2016 10:08 - CONCLUSION: No significant stenosis is seen. Deshawn Mccrary MD Brain MRI 10/03/16 0000 Signed Impressions: Service Date/Time: Monday, October 03, 2016 17:32 - CONCLUSION: 1. Significant vertebral basilar disease with lacunar infarcts in the brainstem, both acute and chronic. 2. Mild periventricular white matter changes in the supratentorial brain. 3. There is no parenchymal hemorrhage. Jaime Bazan MD FACR Micro and Labs Laboratory Tests Test 10/05/16 04:52 White Blood Count 5.4 Red Blood Count 3.91 Hemoglobin 9.6 Hematocrit 31.3 Mean Corpuscular Volume 80.0 Mean Corpuscular Hemoglobin 24.5 Mean Corpuscular Hemoglobin 30.6 Concent Red Cell Distribution Width 15.3 Platelet Count 237 Mean Platelet Volume 7.8 Neutrophils (%) (Auto) 58.7 Lymphocytes (%) (Auto) 28.5 Monocytes (%) (Auto) 7.7 Eosinophils (%) (Auto) 4.3 Basophils (%) (Auto) 0.8 Neutrophils # (Auto) 3.2 Lymphocytes # (Auto) 1.5 Monocytes # (Auto) 0.4 Eosinophils # (Auto) 0.2 Basophils # (Auto) 0.0 CBC Comment AUTO DIFF Differential Comment AUTO DIFF CONFIRMED Sodium Level 136 Potassium Level 4.1 Chloride Level 100 Carbon Dioxide Level 28.0 Anion Gap 8 Blood Urea Nitrogen 29 Creatinine 4.45 Estimat Glomerular Filtration 12 Rate Random Glucose 131 Calcium Level 8.6 Ashley Reyes MD Oct 05, 2016 17:09
[2016-10-05 20:15] VITALS: PULSE 66
[2016-10-05] MEDS: ATORVASTATIN 80 MG TAB PO SCH (20:51)
[2016-10-05 21:03] VITALS: BP 152/79; PULSE 69; RESP 21; TEMP 98.8; O2SAT 97
[2016-10-06 01:24] VITALS: BP 147/79; PULSE 87; RESP 21; TEMP 98.9; O2SAT 98
[2016-10-06 05:30] VITALS: BP 166/82; PULSE 82; RESP 21; TEMP 98.7; O2SAT 95
[2016-10-06] MEDS ORDERED: ASPI81TA11 PO (06:36)
[2016-10-06] MEDS: INSULIN ASPART SUPPLEMENTAL SCALE SQ SCH ×3 (06:37→17:06)
[2016-10-06 08:00] VITALS: BP 165/97; PULSE 66; PULSE 67; RESP 16; TEMP 97.8; O2SAT 95
[2016-10-06 08:53] LABS: BICARBONATE 31.9 MEQ/L (21.0-32.0); POTASSIUM 4.4 MEQ/L (3.5-5.1)
[2016-10-06] MEDS ORDERED: ASPIRIN EC 81 MG TABEC PO SCH (09:00)
[2016-10-06] MEDS: SODIUM CHLORIDE 0.9% FLUSH 5 ML FLUSH IVF SCH (10:28)
[2016-10-06] MEDS: SODIUM BICARBONATE 650 MG TAB PO SCH (10:29)
[2016-10-06] MEDS: GABAPENTIN 100 MG CAP PO SCH (10:29)
[2016-10-06] MEDS: PANTOPRAZOLE SOD 20 MG DELAYED RELEASE TAB PO SCH (10:29)
[2016-10-06] MEDS: FUROSEMIDE 40 MG TAB PO SCH (10:29)
--- NOTE | 2016-10-06 10:29 | HHI.FPPN ---
Subjective Remarks No acute events overnight. Blood pressure is increasing but blood pressure medications have been restarted. Patient has no complaints but states her symptoms are stable and not worsening. (Milady Menendez MD R2) Objective Vitals Vital Signs Date Time Temp Pulse Resp B/P Pulse Ox O2 Delivery O2 Flow Rate FiO2 10/06/16 05:30 98.7 82 21 166/82 95 10/06/16 01:24 98.9 87 21 147/79 98 10/05/16 21:03 98.8 69 21 152/79 97 10/05/16 20:15 66 I/O 10/05/16 10/05/16 10/05/16 10/06/16 10/06/16 10/06/16 07:00 15:00 23:00 07:00 15:00 23:00 Intake Total 240 ml Output Total 1500 ml Balance -1500 ml 240 ml Intake Oral 240 ml Output Hemodialysis 1500 ml # Voids 2 (Milady Menendez MD R2) Result Diagram: 10/05/16 0452 10/06/16 0805 Objective Remarks GENERAL: Lying in bed in NAD SKIN: Cool and dry without rash or ecchymosis. CARDIOVASCULAR: RRR with no MGR. RESPIRATORY: Minimum bibasilar crackles but with good air movement. NEUROLOGICAL: AAOx3. Slowed speech with mild aphasia. Upper and lower extremities neurovascularly intact with appropriate strength. (Milady Menendez MD R2) A/P Assessment and Plan 56 year old female with h/o T2DM, anemia, HD MWF, s/p RLE BKA admitted with the chief complaint of dizziness likely due to a CVA. Discharge Planning Today sdw Dr. Nelson and Dr. Mittal (Milady Menendez MD R2) Assessment and Plan 10/06/16 Attending note: Attending note: Patient seen and examined with the resident team. Case reviewed and discussed length with the resident team. I agree with the plan of care as discussed with me and documented in the resident note. (Cb Nelson MD) Problem List: (1) Lacunar infarction Status: Acute Plan: Patient presenting with dizziness, imbalance and slowed speech with mild aphasia since Monday. MRI showing acute and chronic lacunar infarcts in the brainstem. -Counseled patient that effects need time to improve -OT: Recommended bedside commode and rehabilitation -PT: recommend home hang PT Neurology consulted: Appreciate recommendations * Neuro checks * Aspirin 81 * Resume blood pressure medications * Okay for discharge Imaging: * Brain MRI: Significant vertebral disease with lacunar infarcts in the brainstem both acute and chronic. Mild periventricular white matter changes in the supratentorial brain. There is no parenchymal hemorrhage. * Echo: EF of 50-55%. No cardiac source of emboli was identified * Carotid ultrasound: No significant stenosis seen Medications: * Aspirin 325 * Atorvastatin 80 mg * Furosemide 40mg BID (home medication) (2) Hemodialysis patient Status: Chronic Plan: Patient currently on MWF hemodialysis due to renal failure. Patient did not receive hemodialysis on Monday, 10/03 Nephrology: * dialysis 10/04 * will resume MWF schedule -Electrolytes unremarkable (3) Diabetes Status: Acute Plan: Patient with type 2 diabetes currently on Lantus 45 units twice a day and SSI at home -A1c 7.4 -Levemir held as patient is not requiring supplemental insulin Continue home Gabapentin (4) HTN (hypertension) Status: Chronic Plan: Home Hydralazine, labetalol, and amlodipine resumed 10/06/16 --Hydralazine PRN (5) Nutrition, metabolism, and development symptoms Status: Acute Plan: Fluids: none Electrolytes: Continue to monitor Nutrition: Diabetic diet DVT PPX: SCDs GI PPX: Protonix (Milady Menendez MD R2) Problem Qualifiers (1) Diabetes: Milady Menendez MD R2 Oct 06, 2016 10:29 Cb Nelson MD Oct 06, 2016 23:24
[2016-10-06] MEDS: hydrALAZINE HCL 50 MG TAB PO SCH (10:30)
[2016-10-06] MEDS: LABETALOL HCL 300 MG TAB PO SCH ×2 (11:08→17:07)
[2016-10-06 12:43] VITALS: BP 138/67
--- NOTE | 2016-10-06 13:56 | HHI.DS ---
Discharge Summary Admission Date Oct 03, 2016 at 19:06 Discharge Date: Oct 06, 2016 Admitting Diagnosis stroke (1) Lacunar infarction Diagnosis: Principal Plan: Patient presenting with dizziness, imbalance and slowed speech with mild aphasia since Monday. MRI showing acute and chronic lacunar infarcts in the brainstem. -Counseled patient that effects need time to improve -OT: Recommended bedside commode and rehabilitation -PT: recommend home hang PT Neurology consulted: Appreciate recommendations * Neuro checks * Aspirin 81 * Resume blood pressure medications * Okay for discharge Imaging: * Brain MRI: Significant vertebral disease with lacunar infarcts in the brainstem both acute and chronic. Mild periventricular white matter changes in the supratentorial brain. There is no parenchymal hemorrhage. * Echo: EF of 50-55%. No cardiac source of emboli was identified * Carotid ultrasound: No significant stenosis seen Medications: * Aspirin 325 * Atorvastatin 80 mg * Furosemide 40mg BID (home medication) (2) Hemodialysis patient Diagnosis: Principal Plan: Patient currently on MWF hemodialysis due to renal failure. Patient did not receive hemodialysis on Monday, 10/03 Nephrology: * dialysis 10/04 * will resume MWF schedule -Electrolytes unremarkable (3) Diabetes Diagnosis: Secondary Plan: Patient with type 2 diabetes currently on Lantus 45 units twice a day and SSI at home -A1c 7.4 -Levemir held as patient is not requiring supplemental insulin Continue home Gabapentin (4) HTN (hypertension) Diagnosis: Secondary Plan: Home Hydralazine, labetalol, and amlodipine resumed 10/06/16 --Hydralazine PRN Consultants Neurology, nephrology Brief History Mrs. Vasquez is a 56 y/o F with a PMHx of type 2 DM, anemia, and s/p RLE BKA presenting to the ED with the chief complaint of dizziness. She states that last 09/30/16, during her hemodialysis appointment she began to feel very dizzy. She states that her vocational services specialist wanted to take 3L of fluid off during her dialysis, however they discontinued after approximately 2L due to severe cramping and dizziness. Since that time she has been lethargic, but not obtunded. She has had intermittent episodes of dizziness with room spinning causing imbalance. She has also been experiencing visual disturbances throughout the weekend with the inability to focus on objects such as faces or the television. Of note she does have a history of cataracts. While the patient has had a stuttering problem since childhood, she agrees that her current speech is delayed and has been having some trouble finding the correct words to say over the weekend. She has been experiencing intermittent headaches at 6/10 on the pain scale located on the back of her head. She denies any odd tastes or smells, loss of consciousness, or seizure like activity. She has no other complaints and denies any fevers, SOB, chest pain, NVD, or calf tenderness currently. Of note patient reports that she did not receive hemodialysis today. When asked about her urine output, the patient states that she is able to produce urine. However she will go days without voiding and is incontinent. CBC/BMP: 10/05/16 0452 10/06/16 0805 Significant Findings Laboratory Tests Test 10/03/16 10/03/16 10/03/16 10/04/16 15:36 15:40 17:00 01:23 Urine Turbidity HAZY (CLEAR) Urine Protein 100 mg/dL (NEG-TRACE) Urine Bacteria OCC /hpf (NONE) Red Blood Count 3.90 MIL/MM3 (4.00-5.30) Hemoglobin 9.8 GM/DL (11.6-15.3) Hematocrit 30.8 % (35.0-46.0) Mean Corpuscular Volume 79.0 FL (80.0-100.0) Mean Corpuscular Hemoglobin 25.3 PG (27.0-34.0) Eosinophils (%) (Auto) 4.1 % (0.0-4.0) Blood Urea Nitrogen 42 MG/DL (7-18) Creatinine 5.77 MG/DL (0.50-1.00) Estimat Glomerular Filtration 9 ML/MIN (>89) Rate Random Glucose 115 MG/DL (74-106) Troponin I 0.13 NG/ML 0.11 NG/ML (0.02-0.05) (0.02-0.05) Total Creatine Kinase 501 U/L (26-192) Test 10/04/16 10/05/16 10/06/16 04:30 04:52 08:05 Red Blood Count 3.76 MIL/MM3 3.91 MIL/MM3 (4.00-5.30) (4.00-5.30) Hemoglobin 9.3 GM/DL 9.6 GM/DL (11.6-15.3) (11.6-15.3) Hematocrit 29.7 % 31.3 % (35.0-46.0) (35.0-46.0) Mean Corpuscular Volume 79.0 FL (80.0-100.0) Mean Corpuscular Hemoglobin 24.7 PG 24.5 PG (27.0-34.0) (27.0-34.0) Mean Corpuscular Hemoglobin 31.3 % 30.6 % Concent (32.0-36.0) (32.0-36.0) Eosinophils (%) (Auto) 4.6 % (0.0-4.0) 4.3 % (0.0-4.0) Blood Urea Nitrogen 45 MG/DL (7-18) 29 MG/DL (7-18) 22 MG/DL (7-18) Creatinine 5.89 MG/DL 4.45 MG/DL 4.32 MG/DL (0.50-1.00) (0.50-1.00) (0.50-1.00) Estimat Glomerular Filtration 9 ML/MIN (>89) 12 ML/MIN (>89) 13 ML/MIN (>89) Rate Random Glucose 51 MG/DL 131 MG/DL 129 MG/DL (74-106) (74-106) (74-106) Hemoglobin A1c 7.4 % (4.3-6.0) Alkaline Phosphatase 131 U/L (45-117) Total Creatine Kinase 471 U/L (26-192) Troponin I 0.17 NG/ML (0.02-0.05) Albumin 3.0 GM/DL (3.4-5.0) Cholesterol Level 117 MG/DL (120-200) Imaging MRI brain showing significant vertebral basilar disease with lacunar infarcts in the brainstem, both acute and chronic. Mild periventricular white matter changes in the supratentorial brain. No parenchymal hemorrhage. Carotid artery ultrasound showing no significant stenosis PE at Discharge GENERAL: Lying in bed in NAD SKIN: Cool and dry without rash or ecchymosis. CARDIOVASCULAR: RRR with no MGR. RESPIRATORY: Minimum bibasilar crackles but with good air movement. NEUROLOGICAL: AAOx3. Slowed speech with mild aphasia. Upper and lower extremities neurovascularly intact with appropriate strength. Hospital Course Neurology was consulted given her acute and chronic brainstem lacunar infarcts. Permissive hypertension was allowed for the first 24 hours with a gradual decrease thereafter. Her home BP medications were resumed prior to discharge and was tolerated. The patient worked with PT/OT/ST while inpatient. Nephrology was consulted due to chronic renal failure and need for hemodialysis. The patient was dialyzed twice during her hospital admission and will now resume her normal schedule. The patient is stable for discharge and will have PT/OT/ST work with her for rehab. She will follow up closely with Dr. Reyes, neurology and her primary Dr. Hylton. Pt Condition on Discharge: Stable Discharge Disposition: Disch w/ Home Health Serv Discharge Instructions DIET: Follow Instructions for: Diabetic Diet Speech Therapy-Diet Recommends: Regular Activities you can perform: Regular-No Restrictions Follow up Referrals: Neurology - 1 Week with Ashley Reyes MD PCP Follow-up - 1 Week with James Hylton D.o. New Medications: Bedside Commode (Bedside Commode) 1 Mis Mis 1 EA .ROUTE DIRECTED #1 EA Wheelchair (Wheelchair) 1 Mis Mis 1 EA .ROUTE DIRECTED #[address] (Aspirin EC) 81 Mg Tabdr 81 MG PO DAILY #30 TAB Continued Medications: Acetaminophen (Tylenol) 325 Mg Tab 650 MG PO Q6H PRN HEADACHE Ref 0 TAB Albuterol 6.7 GM Inh (Proventil Hfa 6.7 GM Inh) 90 Mcg/Act Aer 1 PUFF INH Q4H PRN SHORTNESS OF BREATH #1 Ref 0 INHALER Amlodipine (Amlodipine) 10 Mg Tab 10 MG PO DAILY Blood Pressure Management #30 Ref 0 TAB Atorvastatin (Lipitor) 80 Mg Tab 80 MG PO HS Cholesterol Management #30 Ref 0 TAB Epoetin Inj (Epogen Inj) 20,000 Unit/Ml Inj 31956 UNITS SQ DIRECTED VIAL Furosemide (Lasix) 40 Mg Tab 40 MG PO BID #60 Ref 0 TAB Gabapentin (Gabapentin) 100 Mg Cap 100 MG PO BID #60 Ref 0 CAP Hydralazine (Hydralazine) 50 Mg Tab 50 MG PO BID Take with a meal Blood Pressure Management Ref 0 TAB Insulin Aspart Inj (Novolog Inj) 1,000 Unit/10 Ml Vial 0 SQ DIRECTED Sliding Scale as directed. Blood Sugar Management #10 Ref 0 ML Labetalol (Labetalol) 300 Mg Tab 300 MG PO TID Blood Pressure Management Ref 0 TAB Omeprazole (Omeprazole) 20 Mg Cap DAILY Sodium Bicarbonate (Sodium Bicarbonate) 650 Mg Tab 650 MG PO BIDPC #60 Ref 0 TAB Discontinued Medications: Insulin Glargine Inj (Lantus Inj) 100 Unit/Ml Inj 45 BID Kendall Mittal MD R1 Oct 06, 2016 13:56
== END 2016-10-06 22:41 | disposition home health service (06) | DRG 64 ==
LOC: NEPE 14:54 → NEDA 19:06 → NEPGCP 22:19
PROVIDERS: ADMIT Family Medicine; ATTEND Family Medicine
PROC: 5A1D60Z (ICD-10-PCS; principal; 2016-10-04)
DX: I63.9 Cerebral infarction, unspecified (principal); N18.6 End stage renal disease; I12.0 Hypertensive chronic kidney disease with stage 5 chronic kidney disease or end stage renal disease; E11.22 Type 2 diabetes mellitus with diabetic chronic kidney disease; K21.9 Gastro-esophageal reflux disease without esophagitis; H26.9 Unspecified cataract; D64.9 Anemia, unspecified; R47.01 Aphasia; E78.00 Pure hypercholesterolemia, unspecified; G47.30 Sleep apnea, unspecified; R27.0 Ataxia, unspecified; H53.9 Unspecified visual disturbance; E66.9 Obesity, unspecified; E11.649 Type 2 diabetes mellitus with hypoglycemia without coma; Z99.2 Dependence on renal dialysis; Z89.511 Acquired absence of right leg below knee; Z68.39 Body mass index [BMI] 39.0-39.9, adult; Z79.4 Long term (current) use of insulin; Z87.891 Personal history of nicotine dependence
CPT/HCPCS: 70551; 71010; 76937; 80048; 80053; 80061; 81001; 82550; 82552; 82948; 83036; 83735; 84484; 85025; 85610; 85730; 90935; 93005; 93306; 93880; 94667; 94668; 96374; J1644; J1815; J7030; P9612; Q4081

== ENCOUNTER 2017-07-12 16:28 | Emergency (ER) | payer MEDICARE, OTHER ==
[~2017-07-12] VITALS: Ht 160 cm; Wt 85.0 kg
[~2017-07-12 16:28] MED LIST changes: +ALBU6.7H INH; +AMLO10TA2 PO; +ASPI81TA11 PO; +BEDSIDE COMMODE1 MI1; -LANTUS2P; +WHEEMIS3
[2017-07-12 16:29] VITALS: BP 163/77; PULSE 83; RESP 18; TEMP 98.6; O2SAT 99
--- NOTE | 2017-07-12 17:20 | PD ---
HPI Chief Complaint: Musculoskeletal Complaint Time Seen by Provider: 17:00 Travel History International Travel<30 days: No Contact w/Intl Traveler<30days: No Traveled to known affect area: No History of Present Illness HPI C/O RIGHT HIP/THIGH BONE PAIN, [place], 04/27, DIFFICULT TO AMBULATE WITH IT ( WEARS RT PROSTHETIC LEG). SINCE 3 WEEKS AGO WHEN SHE FELL DOWN AND LANDED ON HER BUTT, WHILE AT [employer]. PFSH Past Medical History Anemia: Yes Arthritis: Yes Asthma: No Heart Rhythm Problems: No Cancer: No Cardiovascular Problems: Yes (HTN, CHF) High Cholesterol: Yes Chest Pain: Yes (chest pain 2 months ago) Congestive Heart Failure: Yes COPD: No Diabetes: Yes Patient Takes Glucophage: No Dialysis: Yes (MON, WED, FRI) Diminished Hearing: No Endocrine: Yes GERD: Yes Genitourinary: Yes (ESRD) Hepatitis: No Hiatal Hernia: No Hypertension: Yes Immune Disorder: No Kidney Stones: No Medical other: Yes (ULCER X 2 ON LEFT LOWER LEG - ) Musculoskeletal: Yes (BROKEN RIGHT LEG ) Neurologic: No Psychiatric: No Reproductive: No Respiratory: Yes Renal Failure: Yes (ESRD) Sleep Apnea: Yes Ulcer: No Menopausal: Yes : 1 Miscarriage: 1 Past Surgical History Abdominal Surgery: No AICD: No Body Medical Devices: NONE Cardiac Surgery: No Ear Surgery: No Endocrine Surgery: No Eye Surgery: No Genitourinary Surgery: No Gynecologic Surgery: No Joint Replacement: No Neurologic Surgery: No Oral Surgery: No Pacemaker: No Thoracic Surgery: No Other Surgery: Yes (RIGHT LEG DEBRIDMENT AND SKIN GRAFT, LEFT ARM FISTULA) Social History Alcohol Use: No Tobacco Use: No Substance Use: No Allergies-Medications (Allergen,Severity, Reaction): Coded Allergies: ampicillin (Unverified Allergy, Severe, DIARRHEA/VOMITTING, 05/02/17) sulfamethoxazole (Unverified Allergy, Severe, HIVES, 05/02/17) trimethoprim (Unverified Allergy, Severe, HIVES, 05/02/17) Reported Meds & Prescriptions Reported Meds & Active Scripts Active Ultram (Tramadol HCl) 50 Mg Tab 50 Mg PO Q6H PRN Aspirin EC (Aspirin) 81 Mg Tabdr 81 Mg PO DAILY Wheelchair (Device) 1 Mis Mis 1 Ea .ROUTE DIRECTED Bedside Commode (Device) 1 Mis Mis 1 Ea .ROUTE DIRECTED Reported Amlodipine (Amlodipine Besylate) 10 Mg Tab 10 Mg PO DAILY Proventil Hfa 6.7 GM Inh (Albuterol Sulfate) 90 Mcg/Act Aer 1 Puff INH Q4H PRN Sodium Bicarbonate 650 Mg Tab 650 Mg PO BIDPC Omeprazole 20 Mg Cap DAILY Labetalol (Labetalol HCl) 300 Mg Tab 300 Mg PO TID Novolog Inj (Insulin Aspart) 1,000 Unit/10 Ml Vial 0 SQ DIRECTED Sliding Scale as directed. Hydralazine (Hydralazine HCl) 50 Mg Tab 50 Mg PO BID Take with a meal Gabapentin 100 Mg Cap 100 Mg PO BID Lasix (Furosemide) 40 Mg Tab 40 Mg PO BID Epogen Inj (Epoetin Caleb) 20,000 Unit/Ml Inj 60,000 Units SQ DIRECTED Lipitor (Atorvastatin Calcium) 80 Mg Tab 80 Mg PO HS Tylenol (Acetaminophen) 325 Mg Tab 650 Mg PO Q6H PRN Review of Systems Except as stated in HPI: all other systems reviewed are Neg General / Constitutional: No: Fever Eyes: No: Visual changes HENT: No: Headaches Cardiovascular: No: Chest Pain or Discomfort Respiratory: No: Shortness of Breath Gastrointestinal: No: Abdominal Pain Genitourinary: No: Dysuria Musculoskeletal: Positive: Limited ROM, Pain (LIIMITED ROM DUE TO PAIN TO HIP) Skin: No Rash Neurologic: No: Weakness Psychiatric: No: Depression Endocrine: No: Polydipsia Hematologic/Lymphatic: No: Easy Bruising Physical Exam Narrative GENERAL: SKIN: Warm and dry. HEAD: Atraumatic. Normocephalic. EYES: Pupils equal and round. No scleral icterus. No injection or drainage. ENT: No nasal bleeding or discharge. Mucous membranes pink and moist. NECK: Trachea midline. No JVD. CARDIOVASCULAR: Regular rate and rhythm. RESPIRATORY: No accessory muscle use. Clear to auscultation. Breath sounds equal bilaterally. GASTROINTESTINAL: Abdomen soft, non-tender, nondistended. Hepatic and splenic margins not palpable. MUSCULOSKELETAL: Extremities without clubbing, cyanosis, or edema. No obvious deformities. 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 No obvious cranial nerve deficits. Motor grossly within normal limits. Five out of 5 muscle strength in the arms and legs. Normal speech. PSYCHIATRIC: Appropriate mood and affect; insight and judgment normal. Data Data Last Documented VS Orders Orders Ct Hip W/O Contrast (10/25/17 ) Femur (Ap & Lat/2vws) (07/12/17 ) Oxycodone-Acetamin 10-325 Mg (Percocet 1 (07/12/17 19:15) Ed Discharge Order (07/12/17 20:29) [facility] Medical Decision Making Medical Screen Exam Complete: Yes Emergency Medical Condition: Yes Medical Record Reviewed: Yes Differential Diagnosis RT HIP CONTUSION V FX V PUBIC RAMUS INJURY Narrative Course IMAGING DID NOT SHOW ANY FX/DISLOCATION THAT COULD CONTRIBUTE TO PAIN...SOFT TISSUE INJURY WILL D/C HOME Diagnosis Primary Impression: RT HIP OSTEOARTHRITIS Patient Instructions: General Instructions, Osteoarthritis (ED) Scripts Tramadol (Ultram) 50 Mg Tab 50 MG PO Q6H Y for PAIN, #20 TAB 0 Refills Prov: Arnulfo Tobin MD 07/12/17 Disposition: 01 DISCHARGE HOME Condition: Stable Arnulfo Tobin MD Jul 12, 2017 17:20
--- NOTE | 2017-07-12 18:06 | RADRPT ---
EXAM DATE/TIME: 07/12/2017 17:29 [place] COMPARISON: No previous studies available for comparison. INDICATIONS : Right femur pain for 3 weeks with no known injury MEDICAL HISTORY : None. SURGICAL HISTORY : None. ENCOUNTER: Initial ACUITY: 3 weeks PAIN SCORE: 7/10 LOCATION: Right proximal femur FINDINGS: The osseous structures of the thigh are osteopenic. No fracture or bony destruction seen. The supra patellar region is grossly unremarkable. No radiopaque foreign bodies. CONCLUSION: Diffuse osteopenia. No femoral fracture seen. Pepe Disla MD on July 12, 2017 at 18:04 Board Certified Radiologist. This report was verified electronically.
[2017-07-12] MEDS ORDERED: ULTR50TA5 PO (18:53)
[2017-07-12] MEDS ORDERED: oxyCODONE/ACETAMINOPHEN 10 MG/325 MG TAB PO ONE (19:15)
--- NOTE | 2017-07-12 20:09 | RADRPT ---
EXAM DATE/TIME: 07/12/2017 17:50 [place] COMPARISON: No previous studies available for comparison. INDICATIONS : Right hip and leg pain for three weeks. RADIATION DOSE: 22.45 CTDIvol (mGy) MEDICAL HISTORY : Hypertension. Congestive heart failure. Renal failure, chronic.Anemia SURGICAL HISTORY : None. ENCOUNTER: Initial ACUITY: 3 weeks PAIN SCALE: 7/10 LOCATION: Right HIP TECHNIQUE: Volumetric scanning of the hip was performed. Using automated exposure control and adjustment of the mA and/or kV according to patient size, radiation dose was kept as low as reasonably achievable to o btain optimal diagnostic quality images. DICOM format image data is available electronically for rev iew and comparison. FINDINGS: BONES: No evidence of fracture. Alignment is within normal limits. Mild superior joint space narrowing of t he right hip. JOINTS: No evidence of joint narrowing or effusion. SOFT TISSUES: Muscles, tendons and neurovascular structures are grossly unremarkable. No evidence of mass, organize d fluid collection, or foreign body. CONCLUSION: No acute findings Deshawn Zarate MD on July 12, 2017 at 20:04 Board Certified Radiologist. This report was verified electronically.
--- NOTE | 2017-07-12 20:31 | PD ---
Physical Exam Date Seen by Provider: Jul 12, 2017 Time Seen by Provider: 20:30 Narrative 57-year-old female came to the emergency room with history of right leg stump pain. Patient has history of DKA. She was seen by the previous ER physician. Please refer to his history and physical regarding further details. The plan was to follow-up on the CAT scan that he had ordered for the leg. The CT scan came back and is within normal limit. He has written a prescription for Ultram for her to go home with that the CT was negative. Discussed this with the patient and she will be discharged home. The nurse is trying to arrange for med one for her to go home. Data Data Last Documented VS Orders Orders Ct Hip W/O Contrast (07/12/17 ) Femur (Ap & Lat/2vws) (07/12/17 ) Oxycodone-Acetamin 10-325 Mg (Percocet 1 (07/12/17 19:15) Ed Discharge Order (07/12/17 20:29) MDM Supervised Visit with [id number]: No Diagnosis Primary Impression: RT HIP OSTEOARTHRITIS Patient Instructions: General Instructions, Osteoarthritis (ED) Scripts Tramadol (Ultram) 50 Mg Tab 50 MG PO Q6H Y for PAIN, #20 TAB 0 Refills Prov: Arnulfo Tobin MD 07/12/17 Disposition: 01 DISCHARGE HOME Condition: Stable Ju Avendaño MD Jul 12, 2017 20:31
== END 2017-07-12 22:29 | disposition home or self-care (01) ==
LOC: NEPE 16:28
DX: M16.11 Unilateral primary osteoarthritis, right hip (principal); D64.9 Anemia, unspecified; M19.90 Unspecified osteoarthritis, unspecified site; I13.2 Hypertensive heart and chronic kidney disease with heart failure and with stage 5 chronic kidney disease, or end stage renal disease; I50.9 Heart failure, unspecified; N18.6 End stage renal disease; E11.22 Type 2 diabetes mellitus with diabetic chronic kidney disease; E78.00 Pure hypercholesterolemia, unspecified; K21.9 Gastro-esophageal reflux disease without esophagitis
CPT/HCPCS: 73552; 73700; 99284